=== PATIENT | female | born 1940 | race Caucasian/White ===

== ENCOUNTER → 2017-01-01 | Outpatient (CLI) | payer MEDICARE, BC ==
[2017-01-01 11:14] LABS: EKG EKG PERFORMED
[2017-01-01 11:34] LABS: Appearance,Urine Clear (Clear); Bacteria,Urine Rare /hpf; Bilirubin,Urine Negative (Negative); Glucose,Urine (UA) Negative (Negative); Ketones,Urine Negative (Negative); Leukocyte Esterase,Urine Large (Negative); Mucus,Urine Rare /hpf; Nitrite,Urine Negative (Negative); Particle Count 1478; Protein,Urine Negative (Negative); Specific Gravity,Urine 1.007 (1.001-1.035); Squamous Epithelial Cell,Urine 1 /hpf (0-4); UA Billing (MACRO vs. MICRO) MICRO; Urobilinogen,Urine <2.0 mg/dL (<2.0); WBC,Urine 55 /hpf (0-5)
[2017-01-01 11:49] LABS: INR 1.2 (<1.2); Partial Thromboplastin Time 24.6 sec (22.0-30.0); Prothrombin Time 11.7 sec (9.0-12.0)
[2017-01-01 11:50] LABS: ALT 29 U/L (9-52); AST 25 U/L (14-36); Alkaline Phosphatase 75 U/L (38-126); Anion Gap 10 mmol/L; Blood Urea Nitrogen 23 mg/dL (7-17); Calcium 9.6 mg/dL (8.4-10.2); Carbon Dioxide 24 mmol/L (22-30); Chloride 106 mmol/L (98-107); Glucose 97 mg/dL (74-99); Non-African American GFR(MDRD) >60 (>60 ml/min/1.73 sqM); Potassium 4.7 mmol/L (3.5-5.1); Sodium 140 mmol/L (137-145); Total Bilirubin 0.6 mg/dL (0.2-1.3); Total Protein 6.8 g/dL (6.3-8.2)
[2017-01-01 12:04] LABS: CH 28.4; CHCM 31.9; HCT 46.6 % (34.0-46.0); HDW 2.52; HGB 15.6 gm/dL (11.4-16.0); MCH 30.1 pg (25.0-35.0); MCHC 33.5 g/dL (31.0-37.0); MCV 89.6 fL (80.0-100.0); Mean Platelet Volume 8.7; RDW 14.5 % (11.5-15.5)
[2017-01-01 12:17] LABS: WBC 26.2 k/uL (3.8-10.6)
== END | disposition home or self-care (01) ==
LOC: LABPAT 10:31
PROVIDERS: ATTEND Orthopaedic Surgery
DX: Z01.810 Encounter for preprocedural cardiovascular examination (principal); Z01.812 Encounter for preprocedural laboratory examination
CPT/HCPCS: 80053; 81001; 85027; 85610; 85730; 87070; 93005

== ENCOUNTER 2017-01-21 05:51 | Inpatient (IN) | payer MEDICARE, BC ==
[2017-01-08 13:58] VITALS: BMI 32.3
[~2017-01-21 05:51] MED LIST: DEXAMETHASONE SOD PHOSPHATE 10 MG/ML 1 ML VIAL IV ONE; HYDROmorphone 0.5 MG/0.5 ML SYRINGE IVP PRN; LACTATED RINGERS 1,000 ML IV SCH; MIDAZOLAM 2 MG/2 ML VIAL IV PRN; ONDANSETRON 4 MG/2 ML VIAL IVP ONE; ceFAZolin 2 GM in SODIUM CHLORIDE 0.9% 100 ML IVPB ONE
[2017-01-21 06:26] VITALS: BP 175/76; PULSE 78; RESP 18; TEMP 97.8
[2017-01-21] MEDS ORDERED: LIDOCAINE 1% 20 ML VIAL (10MG/ML) FOR IV START INTRADERMA ONE (06:27)
[2017-01-21 06:28] LABS: CH 29.9; HCT 47.1 % (34.0-46.0); HDW 2.59; MCHC 31.8 g/dL (31.0-37.0); MCV 91.1 fL (80.0-100.0); Mean Platelet Volume 8.5; RBC 5.16 m/uL (3.80-5.40); RDW 15.2 % (11.5-15.5)
[2017-01-21 06:51] LABS: WBC 25.3 k/uL (3.8-10.6)
[2017-01-21 07:25] LABS: CH 28.8; CHCM 31.4; HCT 45.7 % (34.0-46.0); HGB 14.5 gm/dL (11.4-16.0); MCH 29.2 pg (25.0-35.0); MCHC 31.7 g/dL (31.0-37.0); MCV 92.2 fL (80.0-100.0); Mean Platelet Volume 8.8; RBC 4.96 m/uL (3.80-5.40); RDW 14.3 % (11.5-15.5); WBC 22.1 k/uL (3.8-10.6)
--- NOTE | 2017-01-24 11:05 | CONS ---
CONSULTATION Ms. Nicolas was admitted for a left total knee replacement on this date. Previously she had a history of high white count had been noticed and was given to . She of 5.6 and it was repeated on . was 2.5. She had asymptomatic and treated by her physician . Her previous at the time of the previous . She has seen her white blood cells . She was told it was early lymphoma. She was given workup for her in the past years, post and her surgery today and have reevaluation by attending physician. Will reschedule her nitrate until we have some logic as to her and reevaluation by her family physician. MMODL / IJN: [id number] /
== END 2017-01-21 07:51 | disposition home or self-care (01) | DRG 554 ==
LOC: 2ORMAIN 05:51
PROVIDERS: ADMIT Orthopaedic Surgery; ATTEND Orthopaedic Surgery
DX: M17.12 Unilateral primary osteoarthritis, left knee (principal); Z53.09 Procedure and treatment not carried out because of other contraindication
CPT/HCPCS: 85027

== ENCOUNTER → 2017-01-24 | Outpatient (CLI) | payer MEDICARE, BC ==
[2017-01-24 09:23] LABS: Amorphous Sediment,Urine Rare /hpf; Appearance,Urine Cloudy (Clear); Bacteria,Urine Rare /hpf; Bilirubin,Urine Negative (Negative); Glucose,Urine (UA) Negative (Negative); Ketones,Urine Negative (Negative); Leukocyte Esterase,Urine Negative (Negative); Mucus,Urine Occasional /hpf; Nitrite,Urine Negative (Negative); PH, Urine 5.5 (5.0-8.0); Particle Count 3603; Protein,Urine Negative (Negative); RBC,Urine 1 /hpf (0-5); Specific Gravity,Urine 1.015 (1.001-1.035); Squamous Epithelial Cell,Urine 1 /hpf (0-4); UA Billing (MACRO vs. MICRO) MICRO; Urobilinogen,Urine <2.0 mg/dL (<2.0); WBC,Urine 1 /hpf (0-5)
[2017-01-24 09:44] LABS: CH 29.8; CHCM 32.2; HCT 51.1 % (34.0-46.0); HDW 2.59; MCH 29.1 pg (25.0-35.0); MCHC 31.3 g/dL (31.0-37.0); MCV 93.2 fL (80.0-100.0); Mean Platelet Volume 8.9; RBC 5.48 m/uL (3.80-5.40); RDW 15.7 % (11.5-15.5); WBC (Perox) 29.13
[2017-01-24 10:18] LABS: WBC 27.6 k/uL (3.8-10.6)
[2017-01-24 10:23] LABS: Add Differential Manual Differential
[2017-01-24 10:26] LABS: Nucleated Red Blood Cells 0 /100 WBC (0-0); Total Cells Counted 200
== END | disposition home or self-care (01) ==
LOC: LABWHC1 08:46
PROVIDERS: ATTEND Orthopaedic Surgery
DX: N39.0 Urinary tract infection, site not specified (principal); D72.829 Elevated white blood cell count, unspecified
CPT/HCPCS: 36415; 81001; 85025

== ENCOUNTER 2017-01-27 05:45 | Inpatient (IN) | payer MEDICARE, BC ==
[2017-01-23 14:18] VITALS: BMI 32.3
[~2017-01-27 05:45] MED LIST changes: -HYDROmorphone 0.5 MG/0.5 ML SYRINGE IVP PRN; -LACTATED RINGERS 1,000 ML IV SCH
[2017-01-27] MEDS ORDERED: LACTATED RINGERS 1,000 ML IV ONE ×3 (06:13→08:28)
[2017-01-27] MEDS ORDERED: LIDOCAINE 1% 20 ML VIAL (10MG/ML) FOR IV START INTRADERMA ONE (06:31)
[2017-01-27 06:52] LABS: CH 29.8; CHCM 32.6; HCT 49.9 % (34.0-46.0); HDW 2.56; MCH 29.6 pg (25.0-35.0); MCV 92.3 fL (80.0-100.0); Mean Platelet Volume 8.5; RBC 5.41 m/uL (3.80-5.40); RDW 15.7 % (11.5-15.5)
[2017-01-27] MEDS ORDERED: MIDAZOLAM 2 MG/2 ML VIAL ONE (07:07)
[2017-01-27] MEDS ORDERED: SODIUM CHLORIDE 0.9% 1,000 ML IV ONE (07:07)
[2017-01-27] MEDS ORDERED: fentaNYL (PF) 50 MCG/ML 2 ML AMP ONE (07:07)
[2017-01-27] MEDS ORDERED: PROPOFOL 10 MG/ML 20 ML VIAL IV ONE (07:07)
[2017-01-27] MEDS ORDERED: ePHEDrine SULFATE/0.9% NACL/PF 50 MG/5 ML SYRINGE IV ONE (07:07)
[2017-01-27 07:12] LABS: Glucose,Whole Blood 110 mg/dL (75-99)
[2017-01-27 07:23] LABS: WBC 23.1 k/uL (3.8-10.6)
[2017-01-27 07:24] LABS: Add Differential Manual Differential
[2017-01-27 07:26] LABS: Nucleated Red Blood Cells 0 /100 WBC (0-0); Total Cells Counted 100
[2017-01-27 07:34] LABS: Manual Review Performed
[2017-01-27] MEDS ORDERED: ceFAZolin 3,000 MG in SODIUM CHLORIDE 0.9% IRRIGATIO 3,000 ML IRRIGATION ONE (08:09)
[2017-01-27] MEDS ORDERED: NALOXONE 0.4 MG/ML 1 ML VIAL IV PRN (09:35)
[2017-01-27] MEDS ORDERED: BISACODYL 10 MG SUPP RECTAL PRN (09:35)
[2017-01-27] MEDS ORDERED: HYDROcodone/APAP 5-325MG 1 EACH TAB PO PRN (09:35)
[2017-01-27] MEDS ORDERED: ONDANSETRON 4 MG/2 ML VIAL IVP PRN (09:35)
[2017-01-27] MEDS ORDERED: TEMAZEPAM 15 MG CAP PO PRN (09:35)
[2017-01-27] MEDS ORDERED: HYDROmorphone 0.5 MG/0.5 ML SYRINGE IVP PRN ×3 (09:35)
[2017-01-27] MEDS ORDERED: NA PHOS,M-B/NA PHOS,DI-BA 133 ML ENEMA RECTAL PRN (09:35)
[2017-01-27] MEDS: HYDROmorphone 0.5 MG/0.5 ML SYRINGE IVP PRN ×2 (09:43→20:47)
--- NOTE | 2017-01-27 10:20 | XR ---
EXAMINATION TYPE: XR knee limited LT DATE OF EXAM: 01/27/2017 CLINICAL HISTORY: Left knee pain and arthritis status post total knee replacement. TECHNIQUE: Portable AP and crosstable lateral views of the left knee are obtained immediately postop eratively. COMPARISON: None FINDINGS: Metallic hardware from total left knee arthroplasty is seen and appears satisfactory in al ignment and position. There is evidence of recent surgery with diffuse subcutaneous gas soft tissue swelling noted extending anteriorly and most prominent superiorly. IMPRESSION: METALLIC HARDWARE FROM TOTAL LEFT KNEE ARTHROPLASTY IS SATISFACTORY IN ALIGNMENT.
[2017-01-27] MEDS: HYDROcodone/APAP 5-325MG 1 EACH TAB PO PRN ×3 (11:32→21:33)
[2017-01-27] MEDS: ceFAZolin 2 GM in SODIUM CHLORIDE 0.9% 100 ML IVPB SCH ×2 (15:43→23:12)
[2017-01-27] MEDS: LACTATED RINGERS 1,000 ML IV SCH ×3 (16:22→20:53)
[2017-01-27] MEDS ORDERED: WARFARIN 5 MG TAB PO ONE (18:00)
[2017-01-27] MEDS: SENNOSIDES-DOCUSATE SODIUM 1 EACH TAB PO SCH (20:48)
[2017-01-28] MEDS: HYDROmorphone 0.5 MG/0.5 ML SYRINGE IVP PRN (00:42)
[2017-01-28] MEDS: HYDROcodone/APAP 5-325MG 1 EACH TAB PO PRN (03:12)
[2017-01-28 07:17] LABS: INR 1.5 (<1.2); Prothrombin Time 14.7 sec (9.0-12.0)
--- NOTE | 2017-01-28 07:33 | CONS ---
CONSULTATION DATE OF CONSULTATION: 01/27/2017 REASON FOR CONSULTATION: Medical management requested by Dr. Gill. CONSULTATION: This is a pleasant 76-year-old patient of Dr. Reis'madison undergone a left total knee arthroplasty. Patient's chronic stable medical conditions include hypertension, hyperlipidemia, urinary stress incontinence. Some pain in the operative site. No nausea or vomiting. No chest pain. Denies any cardiac history. REVIEW OF SYSTEMS: CONSTITUTIONAL: None. HEENT: None. RESPIRATORY: None. CARDIOVASCULAR: None. GASTROINTESTINAL: None. GENITOURINARY: As above. MUSCULOSKELETAL: Pain in joints. DERMATOLOGICAL: None. HEMATOLOGIC: None. LYMPHATICS: None. PSYCHIATRY: None. NEUROLOGICAL: None. PAST HISTORY: Hypertension, hyperlipidemia, urinary stress incontinence, osteoarthritis. PAST SURGICAL HISTORY: Appendectomy, cholecystectomy, hysterectomy, right total knee arthroplasty, partial hysterectomy. SOCIAL HISTORY: Lives by herself. Smoked a pack a day for 40 years, stopped in 1992. Alcohol occasional. FAMILY HISTORY: Family history of lung cancer. HOME MEDICATION: 1. Fish oil 1 capsule p.o. daily. 2. Multivitamin 1 tablet p.o. daily. 3. Magonate 250 mg p.o. q.h.s. 4. Losartan 50 mg p.o. daily. 5. Cipro 500 mg q.12. 6. Tylenol 5 mg q.4 p.r.n. ALLERGIES: None. PHYSICAL EXAMINATION: On examination vital signs: Temperature 97, pulse 80, respirations 16, blood pressure 174/72, pulse ox 94% on room air. GENERAL APPEARANCE: Well built, BMI 32.3 sitting up, not in distress. EYES: Pupils equal. Conjunctivae normal. HENT: Oral cavity normal. NECK: JVD not raised. Mass not palpable. RESPIRATORY: Effort Lungs are clear. CARDIOVASCULAR: First and second sounds normal. No edema. ABDOMEN: Soft, nontender. Liver and spleen not palpable. LYMPHATIC: No lymph node palpable in the neck or axillae. PSYCHIATRY: Alert and oriented x3. Mood and affect normal. NEUROLOGICAL: Pupils equal. Cranial nerves grossly intact. MUSCULOSKELETAL: Evidence of osteoarthritis especially in the hands and knee. INVESTIGATIONS: White count 23.1, hemoglobin 16, platelets 110. Lymphocytes up at 18.25. Patient's white count was 27.6 on 01/24/17. ASSESSMENT: 1. Left total knee arthroplasty. 2. Primary osteoarthritis. 3. Essential hypertension. 4. Hyperlipidemia. 5. Chronic urinary stress incontinence. 6. Suspect underlying CLL. This can be worked up further as an outpatient. PLAN: Patient's home medications are to be resumed. Patient getting IV fluids. Coumadin for DVT prophylaxis per Dr. Gill. The patient should follow up with Hematology for possible CLL as an outpatient. No intervention to be done at this point. Care was discussed with the patient. Thank you Dr. Gill. MMBARON / AAKASHN: [id number] /
[2017-01-28 08:01] LABS: CH 28.7; CHCM 31.5; HCT 41.6 % (34.0-46.0); HDW 2.47; HGB 13.3 gm/dL (11.4-16.0); MCH 29.3 pg (25.0-35.0); MCV 91.7 fL (80.0-100.0); Mean Platelet Volume 8.5; RBC 4.54 m/uL (3.80-5.40); RDW 14.5 % (11.5-15.5); WBC (Perox) 28.78
[2017-01-28 08:15] LABS: WBC 27.5 k/uL (3.8-10.6)
[2017-01-28] MEDS ORDERED: HYDROcodone/APAP 7.5-325MG 1 EACH TAB PO PRN (08:37)
[2017-01-28] MEDS: HYDROcodone/APAP 7.5-325MG 1 EACH TAB PO PRN ×3 (09:21→21:16)
--- NOTE | 2017-01-28 09:26 | P.PN ---
Subjective Principal diagnosis: Status post left total knee arthroplasty This is a 76 year-old female post left total knee arthroplasty. This is post- op day 1. The patient was evaluated at the bedside today. The patient denies nausea, vomiting, abdominal pain, shortness of breath, and chest pain this morning. She states her pain is controlled at this time. The patient has not been up with physical therapy but has ambulated to the bathroom. Objective - Vital Signs Vital signs: Vital Signs Temp 98.5 F 01/28/17 06:39 Pulse 80 01/28/17 06:39 Resp 16 01/28/17 06:39 BP 154/72 01/28/17 06:39 Pulse Ox 96 01/28/17 06:39 Intake & Output 01/27/17 01/28/17 01/28/17 18:59 06:59 18:59 Intake Total 2108 3200 Output Total 580 Balance 1528 3200 Weight 87.997 kg Intake: IV 1751 1600 Lactated Ringers 1,000 ml 350 1600 @ 100 mls/hr IV .Q10H [facility] Rx#:[id number] Oral 357 1600 Output: Urine 480 Estimated Blood Loss 100 Other: Voiding Method Indwelling Catheter Indwelling Catheter - Exam The patient does not appear in acute distress. Alert and orientated x3. Dressing is clean dry and intact. Incision appears fine with no erythema or active drainage. Ecchymosis is present to the incision site. There are 2 blisters to the medial aspect of the knee, not near the incision. Calf is soft and nontender. Good foot and ankle motion without difficulty. Sensation and circulatory status is intact. - Labs CBC & Chem 7: 01/28/17 06:37 Labs: Abnormal Lab Results - Last 24 Hours (Table) 01/28/17 01/28/17 Range/Units 06:37 06:37 WBC 27.5 H* (3.8-10.6) k/uL Plt Count 103 L (150-450) k/uL PT 14.7 H (9.0-12.0) sec INR 1.5 H (<1.2) Laboratory Tests 01/28/17 06:37 PT 14.7 H INR 1.5 H Assessment and Plan (1) Primary osteoarthritis of left knee Status: Acute (2) Status post left knee replacement Status: Acute Plan: 1. Continue pain control 2. Anticoagulation with Coumadin per protocol 3. Continue physical therapy, CPM and ambulation 4. Dr. Wiseman consulted due to high white blood cell count, possible CLL 5. Anticipate discharge to skilled rehab on
[2017-01-28 10:21] LABS: Add Differential Manual Differential
[2017-01-28 10:28] LABS: Nucleated Red Blood Cells 0 /100 WBC (0-0); Total Cells Counted 200
[2017-01-28] MEDS: LACTATED RINGERS 1,000 ML IV SCH ×2 (10:53→10:54)
[2017-01-28] MEDS: hydrOXYzine PAMOATE 25 MG CAP PO PRN ×2 (15:08→21:17)
--- NOTE | 2017-01-28 17:18 | P.PN ---
Progress Note - Text DATE OF SERVICE: 01/28/2017 PRESENTING COMPLAINT: Status post left total knee arthroplasty HISTORY OF PRESENT ILLNESS: 76-year-old female who is status post left total knee arthroplasty. INTERVAL HISTORY: 01/28/2017: Patient lying in bed complains of operative site pain. Just completed working with physical therapy. Tolerating her diet agreeable to work with physical therapy last BM prior to admission REVIEW OF SYSTEMS: Done for constitutional ,cardiovascular, GI, pulmonary with relevant findings as above. CURRENT MEDICATIONS [place], Dulcolax, Vistaril, Cozaar, milk of magnesia, Coumadin, Senokot-S, Restoril. PHYSICAL EXAM VITAL SIGNS: Temperature 98.5, pulse 80, blood pressure 154/72, respiratory rate 16, oxygen saturation 96%. GENERAL APPEARANCE: Lying in bed, not in distress. EYES: Pupils equal. Conjunctiva normal. NECK: JVD not raised. Mass not palpable. RESPIRATORY: Respiratory effort normal. Lungs diminished to auscultation. CARDIOVASCULAR: First and second sounds normal. No edema. ABDOMEN: Soft. Liver and spleen not palpable. No tenderness. No mass palpable. PSYCHIATRY: Alert and oriented x3. Mood and affect normal. MUSCULOSKELETAL: Evidence of osteoarthritis especially in the knees and hands INVESTIGATIONS: White blood cell count 27.5, INR 1.5 ASSESSMENT: -Left total knee arthroplasty, -Primary osteoarthritis of multiple joints bilateral -Essential hypertension. -Hyperlipidemia. -Chronic urinary stress incontinence. -Suspect underlying CLL this could be worked up as an outpatient. PLAN: Continue Coumadin for DVT prophylaxis per orthopedics, will continue to work with physical therapy, patient follow-up with oncology hematology for CLL after discharge. Plan of care discussed with patient at the bedside she is in agreement. We will follow closely. SWITCHGEAR REPAIRER statement: Patient was seen and examined by nurse practitioner Aimee Naidu and all elements of the case discussed with attending Dr. Penny
[2017-01-28] MEDS ORDERED: WARFARIN 2.5 MG TAB PO ONE (18:00)
--- NOTE | 2017-01-28 18:42 | PN ---
PROGRESS NOTE DATE OF SERVICE: 01/28/2017 ATTENDING NOTE: This patient seen examined by me. I discussed this with my nurse practitioner, Ms. Naidu. Patient having some pain in her left knee surgery otherwise doing well. Tolerating a diet. No nausea, vomiting, sitting up, comfortable. Did work with therapy. EXAMINATION: Afebrile, blood pressure 115/72, pulse ox 94% on room air. LUNGS: Clear. CARDIOVASCULAR: 1st and 2nd sounds normal. White count 27.5. ASSESSMENT: 1. Left total knee arthroplasty. 2. CLL. PLAN: I talked to Dr. Wiseman from Hematology. Patient's CLL is being followed by her family doctor Dr. Massey. Keep a close eye. If things were to change, in that case they can follow up with Dr. Wiseman. For this patient at this point nothing further needs to be done. The patient's blood pressure to be re-checked now that pain is better controlled. MMODL / IJN: [id number] /
[2017-01-28] MEDS: MAGNESIUM HYDROXIDE 2,400 MG/10 ML CUP PO PRN (19:25)
[2017-01-28] MEDS: LOSARTAN 50 MG TAB PO SCH (19:25)
[2017-01-28] MEDS: SENNOSIDES-DOCUSATE SODIUM 1 EACH TAB PO SCH (21:17)
[2017-01-29] MEDS: hydrOXYzine PAMOATE 25 MG CAP PO PRN ×4 (02:57→22:45)
[2017-01-29] MEDS: HYDROcodone/APAP 7.5-325MG 1 EACH TAB PO PRN ×4 (02:58→22:46)
[2017-01-29 07:14] LABS: INR 1.6 (<1.2); Prothrombin Time 15.8 sec (9.0-12.0)
[2017-01-29] MEDS: LOSARTAN 50 MG TAB PO SCH (07:53)
[2017-01-29] MEDS: MAGNESIUM HYDROXIDE 2,400 MG/10 ML CUP PO PRN (08:00)
--- NOTE | 2017-01-29 08:53 | P.PN ---
Subjective Principal diagnosis: Status post left total knee arthroplasty This is a 76 year-old female post left total knee arthroplasty. This is post- op day 2. The patient was evaluated while sitting in the bathroom today. The patient denies nausea, vomiting, abdominal pain, shortness of breath, and chest pain this morning. She states her pain is controlled at this time. The patient has been up with physical therapy and moving slowly. Objective - Vital Signs Vital signs: Vital Signs Temp 97.8 F 01/29/17 07:00 Pulse 100 01/29/17 07:00 Resp 16 01/29/17 07:00 BP 149/65 01/29/17 07:00 Pulse Ox 96 01/29/17 07:00 Intake & Output 01/28/17 01/29/17 01/29/17 18:59 06:59 18:59 Intake Total 1480 237 Balance 1480 237 Weight 87.997 kg Intake: IV 200 Lactated Ringers 1,000 ml 200 @ 100 mls/hr IV .Q10H [facility] Rx#:[id number] Oral 1280 237 Other: Voiding Method Indwelling Catheter # Voids 5 2 1 - Exam The patient does not appear in acute distress. Alert and orientated x3. Dressing is clean dry and intact. Incision appears fine with no erythema or active drainage. Ecchymosis is present to the incision site. There are 2 blisters to the medial aspect of the knee, not near the incision. Calf is soft and nontender. Good foot and ankle motion without difficulty. Sensation and circulatory status is intact. - Labs CBC & Chem 7: 01/28/17 06:37 Labs: Abnormal Lab Results - Last 24 Hours (Table) 01/28/17 01/29/17 Range/Units 06:37 06:34 Plt Count 103 L (150-450) k/uL Lymphocytes # (Manual) 20.90 H (1.0-4.8) k/uL PT 15.8 H (9.0-12.0) sec INR 1.6 H (<1.2) Laboratory Tests 01/29/17 06:34 PT 15.8 H INR 1.6 H Assessment and Plan (1) Primary osteoarthritis of left knee Status: Acute (2) Status post left knee replacement Status: Acute Plan: 1. Continue pain control 2. Anticoagulation with Coumadin per protocol 3. Continue physical therapy, CPM and ambulation 4. Anticipate discharge to skilled rehab on tomorrow
[2017-01-29] MEDS ORDERED: ARTIFICIAL TEARS-HYPROMELLOSE DROPS 15 ML BTL BOTH EYES PRN (10:55)
--- NOTE | 2017-01-29 17:34 | P.PN ---
Progress Note - Text Progress Note Date: 01/29/17 DATE OF SERVICE: 01/29/2017 PRESENTING COMPLAINT: Status post left total knee arthroplasty HISTORY OF PRESENT ILLNESS: 76-year-old female who is status post left total knee arthroplasty. INTERVAL HISTORY: 01/29/2017: Patient sitting up in a chair complains of left knee pain with not too bad. Agreeable to work with physical therapy, tolerating her diet eating about 100% of her meal, last BM prior to admission. Discharge planning for a rehab center. 01/28/2017: Patient lying in bed complains of operative site pain. Just completed working with physical therapy. Tolerating her diet agreeable to work with physical therapy last BM prior to admission REVIEW OF SYSTEMS: Done for constitutional ,cardiovascular, GI, pulmonary with relevant findings as above. CURRENT MEDICATIONS [place], Dulcolax, Vistaril, Cozaar, milk of magnesia, Coumadin, Senokot-S, Restoril. PHYSICAL EXAM VITAL SIGNS: Temperature 97.8, pulse 100, respirations 16, blood pressure 149/65, oxygen saturation 96% on room air. GENERAL APPEARANCE: Lying in bed, not in distress. EYES: Pupils equal. Conjunctiva normal. NECK: JVD not raised. Mass not palpable. RESPIRATORY: Respiratory effort normal. Lungs diminished to auscultation. CARDIOVASCULAR: First and second sounds normal. No edema. ABDOMEN: Soft. Liver and spleen not palpable. No tenderness. No mass palpable. PSYCHIATRY: Alert and oriented x3. Mood and affect normal. MUSCULOSKELETAL: Evidence of osteoarthritis especially in the knees and hands INVESTIGATIONS INR 1.6 ASSESSMENT: -Left total knee arthroplasty, -Primary osteoarthritis of multiple joints bilateral -Essential hypertension. -Hyperlipidemia. -Chronic urinary stress incontinence. -Suspect underlying CLL this could be worked up as an outpatient. PLAN: Continue Coumadin for DVT prophylaxis per orthopedics, will continue to work with physical therapy, patient follow-up with oncology hematology for CLL after discharge. Plan of care discussed with patient at the bedside she is in agreement. We will follow closely. TERRAZZO INSTALLER statement: Patient was seen and examined by nurse practitioner Aimee Naidu and all elements of the case discussed with attending Dr. Penny
[2017-01-29] MEDS ORDERED: WARFARIN 5 MG TAB PO ONE (18:00)
--- NOTE | 2017-01-29 18:07 | PN ---
PROGRESS NOTE DATE OF SERVICE: 01/29/17. The patient was seen and examined by me. I discussed with my nurse practitioner, Ms. Naidu. The patient doing much better today. Pain is better controlled. Up and about. Nausea, vomiting. Tolerating a diet. Did work with physical therapy. PHYSICAL EXAMINATION: Afebrile. Blood pressure 149/65, lungs are clear. CARDIOVASCULAR: First and second sounds normal. Left knee there is some blisters that are present around the joint. INVESTIGATIONS: White count 27.5, hemoglobin 13.3. ASSESSMENT: 1. Left total knee arthroplasty. 2. Chronic lymphocytic leukemia. 3. Blisters present on left knee site. PLAN: We will await further input from Dr. Gill. The patient's fluids have been taken off. Nothing further per orthopedics. We will keep a close eye. Repeat a CBC again in the morning. The patient is afebrile. Otherwise feels actually much better with decreased pain at the surgical site. MMODL / IJN: [id number] /
[2017-01-29] MEDS: SENNOSIDES-DOCUSATE SODIUM 1 EACH TAB PO SCH (21:08)
[2017-01-30] MEDS: hydrOXYzine PAMOATE 25 MG CAP PO PRN ×2 (06:23→13:31)
[2017-01-30 07:00] LABS: Aty Lym Flag Marked; CH 28.8; HCT 34.2 % (34.0-46.0); HDW 2.51; HGB 11.3 gm/dL (11.4-16.0); MCH 29.8 pg (25.0-35.0); MCHC 32.9 g/dL (31.0-37.0); MCV 90.6 fL (80.0-100.0); Mean Platelet Volume 7.6; RBC 3.78 m/uL (3.80-5.40); RDW 14.6 % (11.5-15.5); WBC (Perox) 37.58
[2017-01-30 07:04] LABS: WBC 38.3 k/uL (3.8-10.6)
[2017-01-30 07:09] LABS: Add Differential Manual Differential
[2017-01-30 07:20] LABS: INR 1.4 (<1.2)
[2017-01-30 07:28] VITALS: RESP 16
[2017-01-30 07:42] LABS: Nucleated Red Blood Cells 0 /100 WBC (0-0); Total Cells Counted 200
--- NOTE | 2017-01-30 08:34 | P.DS ---
Providers Date of admission: 01/27/17 05:45 Expected date of discharge: 01/30/17 Attending physician: Scotty Gill Consults: 01/27/17 09:35 Consult Physician Routine Consulting Provider: Gilbert Penny Consult Reason/Comments: medical management Do you want consulting provider notified?: Yes 01/27/17 09:38 Consult Physician Routine Consulting Provider: David Wiseman Consult Reason/Comments: Chronic leukocytosis Do you want consulting provider notified?: Yes Primary care physician: Patrick Massey - Discharge Diagnosis(es) (1) Primary osteoarthritis of left knee Current Visit: Yes Status: Acute (2) Status post left knee replacement Current Visit: Yes Status: Acute Hospital Course: This is a pleasant 76-year-old female last seen in our office with complaints of left knee pain. Patient has known history of degenerative arthritis of the left knee and presented to discuss options. After discussion and consideration , the patient elected to proceed with a left total knee arthroplasty. Patient was seen preoperatively, and medically cleared for surgery by Dr. Massey. Patient was admitted to [facility] underwent left total knee arthroplasty on 01/27/[address] Gill. The procedure was performed without complications or sequelae. The patient is seen and evaluated at bedside today. Pain is well-controlled. Patient has no new complaints today and denies any fevers, chills, nausea, vomiting, or shortness of breath. Vital signs are stable. Dressing is clean dry and intact. Incision looks fine with no erythema or active drainage. There are two blisters on the medial side and the lateral side of the knee, not near the incision. Calf is soft and nontender. Patient has full foot and ankle motion without difficulty. Patient's left lower extremity is neurovascularly intact. She was seen post-operatively by Dr. Wiseman for CLL. The patient is orthopedically stable for discharge today. See medication reconciliation for accurate list of discharge medications. Pertinent Studies: Laboratory Tests 01/30/17 01/30/17 06:43 06:43 WBC 38.3 H* RBC 3.78 L Hgb 11.3 L Hct 34.2 PT 14.0 H INR 1.4 H Patient Condition at Discharge: Stable Plan - Discharge Summary New Discharge Prescriptions: New Aspirin 325 mg PO DAILY #30 tab HYDROcodone/APAP 7.5-325MG [[place] 7.5-325] 1 - 2 tab PO Q4-6H PRN #90 tab PRN Reason: Pain Sennosides-Docusate Sodium [Senokot-S] 2 tab PO DAILY #30 tablet Warfarin [Coumadin] 2.5 mg PO DIRECTED #30 tab No Action Ibuprofen [Motrin] 600 mg PO TID PRN PRN Reason: Pain [place]-3S/Dha/Epa/Fish Oil [[place]-3 Fish Oil 1,000 mg Sfgl] 1 cap PO DAILY Magnesium Gluconate [Magonate] 250 mg PO HS Losartan Potassium 50 mg PO QAM Ciprofloxacin HCl [Cipro] 500 mg PO Q12HR Multivitamin/Iron/Folic Acid [[place] Women Tablet] 1 tab PO DAILY Acetaminophen [Tylenol] 500 mg PO Q4-6H PRN PRN Reason: Pain Discharge Medication List Ibuprofen [Motrin] 600 mg PO TID PRN 12/08/14 [History] Magnesium Gluconate [Magonate] 250 mg PO HS 12/08/14 [History] [place]-3S/Dha/Epa/Fish Oil [[place]-3 Fish Oil 1,000 mg Sfgl] 1 cap PO DAILY [History] Ciprofloxacin HCl [Cipro] 500 mg PO Q12HR 01/08/17 [History] Losartan Potassium 50 mg PO QAM 01/08/17 [History] Multivitamin/Iron/Folic Acid [Centrum Women Tablet] 1 tab PO DAILY 01/08/17 [ History] Acetaminophen [Tylenol] 500 mg PO Q4-6H PRN 01/22/17 [History] Aspirin 325 mg PO DAILY #30 tab 01/29/17 [Rx] HYDROcodone/APAP 7.5-325MG [[place] 7.5-325] 1 - 2 tab PO Q4-6H PRN #90 tab [Rx] Sennosides-Docusate Sodium [Senokot-S] 2 tab PO DAILY #30 tablet 01/29/17 [Rx] Warfarin [Coumadin] 2.5 mg PO DIRECTED #30 tab 01/29/17 [Rx] Follow up Appointment(s)/Referral(s): David Wiseman MD [STAFF PHYSICIAN] - 1 Week (possible CLL) Scotty Gill DO [Doctor of Osteopathic Medicine] - 2 Weeks Ambulatory/Diagnostic Orders: Continuous Passive Motion (CPM) Machine [DME.AMB1] Time Frame: 3 Weeks, Location : Determined By Patient Activity/Diet/Wound Care/Special Instructions: Weightbearing as tolerated with a walker Coumadin 2.5 mg 1 by mouth every other day for 7 days then take Aspirin 325mg daily for 1 month CPM 5-6 hours daily May shower in 3 days if no drainage from incision Keep incision clean and dry Call [facility] [phone] with questions or concerns Discharge Disposition: TRANSFER TO SNF/ECF
[2017-01-30] MEDS: LOSARTAN 50 MG TAB PO SCH (09:25)
--- NOTE | 2017-01-30 13:11 | OP ---
OPERATIVE REPORT DATE OF SERVICE: 01/27/2017. SURGEON: Scotty Gill DO BOX TRUCK OWNER OPERATOR: Kiersten Carey NP PREOPERATIVE DIAGNOSIS: Degenerative joint disease of the left knee. POSTOPERATIVE DIAGNOSIS: Degenerative joint disease of the left knee. PROCEDURE PERFORMED: Left total knee replacement and arthroplasty utilizing Meng Persona component prosthesis. PROCEDURE DESCRIPTION: Patient was taken to the operative suite, placed in supine position. General inhalation anesthesia performed by Anesthesiology. A Betadine prep was carried out over the femur from mid thigh to mid calf. Sterile drapes were applied in the usual manner. The pneumatic tourniquet was inflated to 350 mmHg. A medial parapatellar incision was developed. Medial retinaculum was incised throughout the synovium. The patella was everted and dislocated laterally and knee brought into flexion position and held in a leg larson. The intramedullary cutting guide and jig was utilized for appropriate cuts in preparation for a size 7 femoral component. The component size 7 was impacted in position and the component was well maintained and aligned. A tibial cutting guide was aligned and the appropriate wafer cut was performed. The medial and lateral menisci was excised. A size 4 trabecular metal plate was selected and 10 mm spacer was utilized in preparing for appropriate peg hole positions. the area was irrigated copiously. The tibial tray was marked for position , held and appropriate peg holes were drilled for tibial tray. The patella was everted, a shelving planer was utilized in preparing for size 12mm patella component. Trial components were removed from the knee. Pulsavac antibiotic solution was administered in preparation for final components. Plate was placed in the predrilled holes and a size left tibial component was impacted into position. The patellar component was then placed in position. A 12 mm polyethylene spacer was selected and locked into place and aligned for position. Knee was irrigated with Pulsavac antibiotic solution. The superficial bleeding was controlled with electrocautery. Medial retinaculum was approximated with #3 Vicryl suture in a horizontal mattress fashion. A #2 Quill was utilized in reenforcing the retinaculum in a interrupted fashion. A 2-0 Vicryl suture was utilized for the subcuticular closure. Dermabond was utilized to seal the wound. Betadine, Adaptic and sterile dressing was applied. The pneumatic tourniquet was deflated. Patient was transferred in satisfactory postop condition. GROSS PATHOLOGY: There was evidence of degenerative joint disease of the left knee. MMODL / IJN: [id number] / MTDD
--- NOTE | 2017-01-30 13:14 | P.CONS ---
History of Present Illness - Reason for Consult Consult date: 01/30/17 Rule out ALLERGIC reaction - History of Present Illness This is a 76-year-old female patient who was admitted to the hospital on January 27 and underwent elective left knee total arthroplasty. Patient has had no postop complications and is progressing well with physical therapy. She is planned for discharge to [facility] today. We have been asked to see the patient regarding blisters around the knee area. She is noted to have a number of blisters and some of these have opened and drained. No signs of infection. She does have edema around the surgical area. Patient denies having any fever or chills. Her pain is well controlled at this time on oral medication. Patient has been seen by Dr. Wiseman for her leukocytosis. Noted the patient has been running between 11 and 19 since 2014 and presented with a white count of 23.1 which is now 38.3. Patient states that her primary care physician, Dr. Massey, follows this on a regular basis. She denies having any night sweats, weight loss, shortness of breath, cough, sputum production. She denies any nausea, vomiting diarrhea. She denies any dysuria. Review of Systems All systems: negative Constitutional: Denies anorexia, Denies chills, Denies fatigue, Denies fever, Denies lethargy, Denies malaise, Denies night sweats, Denies poor appetite, Denies sweats, Denies weight loss Eyes: denies blurred vision, denies pain Ears, nose, mouth and throat: Denies dental pain, Denies headache, Denies mouth pain, Denies sore throat Cardiovascular: Denies chest pain, Denies decreased exercise tolerance, Denies dyspnea on exertion, Denies edema, Denies leg edema, Denies lightheadedness, Denies shortness of breath, Denies syncope Respiratory: Denies cough, Denies cough with sputum, Denies dyspnea, Denies excessive sputum, Denies hemoptysis, Denies home oxygen Gastrointestinal: Denies abdominal pain, Denies diarrhea, Denies nausea, Denies vomiting Genitourinary: Denies dysuria, Denies hematuria, Denies urgency, Denies urinary frequency Musculoskeletal: Denies myalgias Integumentary: Reports wounds, Denies pruritus, Denies rash Neurological: Denies numbness, Denies weakness Psychiatric: Denies anxiety, Denies depression Endocrine: Denies fatigue, Denies weight change Past Medical History Past Medical History: Hyperlipidemia, Hypertension, Osteoarthritis (OA) Additional Past Medical History / Comment(s): tx UTI,varicose veins, steroid injection 12-10-16,stress incontinence History of Any Multi-Drug Resistant Organisms: None Reported Past Surgical History: Appendectomy, Cholecystectomy, Hysterectomy, Joint Replacement Additional Past Surgical History / Comment(s): Total R knee arthroplasty, partial hyst Past Anesthesia/Blood Transfusion Reactions: Postoperative Nausea & Vomiting ( PONV) Additional Past Anesthesia/Blood Transfusion Reaction / Comm: no hx blood transfusion Past Psychological History: No Psychological Hx Reported Additional Psychological History / Comment(s): Pt resides alone. She uses no assistive device or home care prior to this surgery. She plans to go to [facility] for rehab after surgery. She drives. Smoking Status: Former smoker Past Alcohol Use History: Occasional Additional Past Alcohol Use History / Comment(s): Pt started smoking in 1953 and quit in 1992,<1 ppd Past Drug Use History: None Reported - Past Family History Brother(s) Family Medical History: Cancer Additional Family Medical History / Comment(s): lung Father Family Medical History: Dementia Additional Family Medical History / Comment(s): at age 91 Mother Family Medical History: Dementia Additional Family Medical History / Comment(s): at age 91 Medications and Allergies Home Medications Medication Instructions Recorded Confirmed Type Ibuprofen [Motrin] 600 mg PO TID PRN 12/08/14 01/27/17 History Magnesium Gluconate [Magonate] 250 mg PO HS 12/08/14 01/27/17 History Bangs-3S/Dha/Epa/Fish Oil [Bangs-3 1 cap PO DAILY 12/08/14 01/27/17 History Fish Oil 1,000 mg Sfgl] Ciprofloxacin HCl [Cipro] 500 mg PO Q12HR 01/08/17 01/27/17 History Losartan Potassium 50 mg PO QAM 01/08/17 01/27/17 History Multivitamin/Iron/Folic Acid 1 tab PO DAILY 01/08/17 01/27/17 History [Centrum Women Tablet] Acetaminophen [Tylenol] 500 mg PO Q4-6H PRN 01/22/17 01/27/17 History Aspirin 325 mg PO DAILY #30 tab 01/29/17 Rx HYDROcodone/APAP 7.5-325MG [[place] 1 - 2 tab PO Q4-6H PRN #90 tab 01/29/17 Rx 7.5-325] Sennosides-Docusate Sodium 2 tab PO DAILY #30 tablet 01/29/17 Rx [Senokot-S] Warfarin [Coumadin] 2.5 mg PO DIRECTED #30 tab 01/29/17 Rx Allergies Allergy/AdvReac Type Severity Reaction Status Date / Time No Known Allergies Allergy Verified 01/27/17 10:00 Physical Exam Vitals: Vital Signs Temp Pulse Pulse Resp BP Pulse Ox 01/30/17 07:00 98.7 F 80 16 124/54 94 L 01/30/17 02:55 98.1 F 89 17 148/85 94 L 01/29/17 21:13 98 F 89 16 132/62 96 01/29/17 20:00 16 01/29/17 16:00 100 89 16 01/29/17 14:56 98.2 F 89 16 131/68 95 Intake and Output 01/29/17 01/30/17 01/30/17 22:59 06:59 14:59 Intake Total 730 900 Output Total 600 500 Balance 130 400 Intake: Oral 730 900 Output: Urine 600 500 Other: Voiding Method Toilet # Voids 2 2 1 Weight 87.997 kg Gen: This is a 76-year-old female. She is found sitting up in the chair at the bedside and appears to be in no acute distress. Patient is eating a sandwich and is noted to have noted difficulty swallowing or coughing. HEENT: Head is atraumatic, normocephalic. Pupils equal, round. Sclerae is anicteric. NECK: Supple. No JVD. No lymphadenopathy. No thyromegaly. LUNGS: Clear to auscultation. No wheezes or rhonchi. No intercostal retractions. HEART: Regular rate and rhythm. No murmur. ABDOMEN: Soft. Bowel sounds are present. No masses. No tenderness. EXTREMITIES: No pedal edema. Left knee has a dressing in place. There is noted to have clear slightly yellow fluid filled bulla. Noted that some have opened and drained and are healing without redness, drainage. No foul odor. NEUROLOGICAL: Patient is awake, alert and oriented x3. Cranial nerves 2 through 12 are grossly intact. Results CBC & Chem 7: 01/30/17 06:43 Labs: Abnormal Lab Results - Last 24 Hours (Table) 01/30/17 01/30/17 Range/Units 06:43 06:43 WBC 38.3 H* (3.8-10.6) k/uL RBC 3.78 L (3.80-5.40) m/uL Hgb 11.3 L (11.4-16.0) gm/dL Plt Count 100 L (150-450) k/uL Lymphocytes # (Manual) 31.41 H (1.0-4.8) k/uL PT 14.0 H (9.0-12.0) sec INR 1.4 H (<1.2) Assessment and Plan Plan: this is a 76-year-old female who presented to the hospital for an elective left total knee arthroplasty done on January 27. She has had no postop complications. She is noted to have large bulla around the surgical area which have started to open, drain and heal. No signs of infection at this time. There is concern for an ALLERGIC reaction. The above dictated assessment and findings were discussed with Dr. Gonzalez. The impression and plan of care have been directed as dictated. Estella Ohara nurse practitioner acting as scribe for Dr. Gonzalez.
[2017-01-30 14:20] VITALS: BP 132/76; PULSE 75; TEMP 97.8
--- NOTE | 2017-01-30 16:23 | PN ---
PROGRESS NOTE DATE OF SERVICE: 01/30/2017 ATTENDING NOTE: This patient seen and examined by me. I discussed with my nurse practitioner, Ms. Naidu. Patient is status post left knee surgery. Some blisters noted around that. Otherwise patient is doing fine. EXAMINATION: Blisters on the left knee surgical site. Lungs are clear. Cardiovascular: 1st and 2nd sounds normal. I discussed with Kiersten Carey from Dr. Gill' team. To get ID opinion, Dr. Gonzalez was consulted, who feels this could be localized allergic reaction with blisters. Resolved with some Silvadene cream. I told the nurse to take some pictures. Will be followed up as an outpatient. 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 Will be followed up as an outpatient. Patient will be getting discharged to the [facility] MMODL / IJN: [id number] /
--- NOTE | 2017-01-30 16:26 | P.PN ---
Progress Note - Text Progress Note Date: 01/30/17 DATE OF SERVICE: 01/29/2017 PRESENTING COMPLAINT: Status post left total knee arthroplasty HISTORY OF PRESENT ILLNESS: 76-year-old female who is status post left total knee arthroplasty. INTERVAL HISTORY: 01/30/2017: Patient sitting up in a recliner, the pain is well-controlled. Agreeable to work with physical therapy. Tolerating her diet eating nearly 100% of her meals , passing a lot of gas but no BM. Discharging to a rehab center today. White blood cell count very elevated today 38.3 patient has a history of lymphoproliferative disorder.infectious disease consulted 01/29/2017: Patient sitting up in a chair complains of left knee pain with not too bad. Agreeable to work with physical therapy, tolerating her diet eating about 100% of her meal, last BM prior to admission. Discharge planning for a rehab center. 01/28/2017: Patient lying in bed complains of operative site pain. Just completed working with physical therapy. Tolerating her diet agreeable to work with physical therapy last BM prior to admission REVIEW OF SYSTEMS: Done for constitutional ,cardiovascular, GI, pulmonary with relevant findings as above. CURRENT MEDICATIONS [place], Dulcolax, Vistaril, Cozaar, milk of magnesia, Coumadin, Senokot-S, Restoril. PHYSICAL EXAM VITAL SIGNS: temperature 98.7, pulse 80, respiratory rate 16, blood pressure 124/54, oxygen saturation 94% on room air GENERAL APPEARANCE: Lying in bed, not in distress. EYES: Pupils equal. Conjunctiva normal. NECK: JVD not raised. Mass not palpable. RESPIRATORY: Respiratory effort normal. Lungs diminished to auscultation. CARDIOVASCULAR: First and second sounds normal. No edema. ABDOMEN: Soft. Liver and spleen not palpable. No tenderness. No mass palpable. PSYCHIATRY: Alert and oriented x3. Mood and affect normal. MUSCULOSKELETAL: Evidence of osteoarthritis especially in the knees and hands INTEGUMENT: Medial and lateral aspects of the left knee have very large fluid- filled blisters, fluid is fluctuant, nontender. INVESTIGATIONS White blood cell count 38.3 INR 1.4 ASSESSMENT: -Left total knee arthroplasty, -left medial and lateral blisters, infective versus ALLERGIC reaction. -Primary osteoarthritis of multiple joints bilateral -Essential hypertension. -Hyperlipidemia. -Chronic urinary stress incontinence. -lymphoproliferative disorder, low grade B cell PLAN: Continue Coumadin for DVT prophylaxis per orthopedics, will continue to work with physical therapy,medial and lateral blisters do not appear to be infected rosary result of infection. patient follow-up with oncology hematology for lymphoproliferative disorder after discharge. Plan of care discussed with patient at the bedside she is in agreement. patient is being discharged to rehab facility today. PLAQUE [employer]ER statement: Patient was seen and examined by nurse practitioner Aimee Naidu and all elements of the case discussed with attending Dr. Penny
[2017-01-30] MEDS ORDERED: WARFARIN 7.5 MG TAB PO ONE (18:00)
--- NOTE | 2017-01-30 20:13 | P.CON ---
Consult Note - . Consult date: 01/30/17 Assessment/Plan:: This is a 76-year-old female patient who was admitted to the hospital on January 27 and underwent elective left knee total arthroplasty. Patient has had no postop complications and is progressing well with physical therapy. She is planned for discharge to [facility] today. We have been asked to see the patient regarding blisters around the knee area. She is noted to have a number of blisters and some of these have opened and drained. No signs of infection. She does have edema around the surgical area. Patient denies having any fever or chills. Her pain is well controlled at this time on oral medication. Patient has been seen by Dr. Wiseman for her leukocytosis. Noted the patient has been running between 11 and 19 since 2014 and presented with a white count of 23.1 which is now 38.3. Patient states that her primary care physician, Dr. Massey, follows this on a regular basis. She denies having any night sweats, weight loss, shortness of breath, cough, sputum production. She denies any nausea, vomiting diarrhea. She denies any dysuria. Please see the consult note is dictated by nurse practitioner Mrs. Estella Ohara. This pleasant 76-year-old woman as noted is status post the left total knee arthroplasty. She was doing well until she developed some severe blisters that are surrounding the arthroplasty site. As noted the outline the lateral aspect of the knee. An area where dressings and adhesive would've been applied. This appears to be a contact dermatitis with blistering. Consequently topical Silvadene will be applied. Nonstick wraps reapplied also this can be done at extended care facility. This should be changed at least on a daily basis for now. The site does not appear to be infected. would avoid antibiotic therapy at this time. She is ready for transfer to the extended care facility. A follow-up in the office if she has any acute needs. I agree with evaluation, assessment and plan as dictated by nurse practitioner Mrs. Estella Ohara.
== END 2017-01-30 15:01 | DRG 470 ==
LOC: 2ORMAIN 05:45 → 3SUR 09:49
PROVIDERS: ADMIT Orthopaedic Surgery; ATTEND Orthopaedic Surgery
PROC: 0SRD0JA Replacement of Left Knee Joint with Synthetic Substitute, Uncemented, Open Approach (ICD-10-PCS; principal; 2017-01-27 07:00)
DX: M17.12 Unilateral primary osteoarthritis, left knee (principal); C91.40 Hairy cell leukemia not having achieved remission; C91.10 Chronic lymphocytic leukemia of B-cell type not having achieved remission; E78.5 Hyperlipidemia, unspecified; I10 Essential (primary) hypertension; N39.3 Stress incontinence (female) (male); S80.222A Blister (nonthermal), left knee, initial encounter; Z79.82 Long term (current) use of aspirin; Z79.899 Other long term (current) drug therapy; Z80.1 Family history of malignant neoplasm of trachea, bronchus and lung; Z87.891 Personal history of nicotine dependence; T78.40XA Allergy, unspecified, initial encounter
CPT/HCPCS: 36415; 81001; 85025; 85610; 88300

== ENCOUNTER → 2023-01-06 | Outpatient (CLI) | payer MEDICARE, BC ==
--- NOTE | 2023-01-06 11:36 | XR ---
EXAMINATION TYPE: XR knee complete RT DATE OF EXAM: 01/06/2023 CLINICAL HISTORY: pain TECHNIQUE: Three views of the right knee are obtained. COMPARISON: None. FINDINGS: There is no acute fracture/dislocation. Total knee arthroplasty is noted be in place. Smal l joint effusion noted. The overlying soft tissue appears unremarkable. IMPRESSION: There is no acute fracture or dislocation.ICD 10 NO FRACTURE, INITIAL EVALUATION
--- NOTE | 2023-01-06 12:09 | XR ---
EXAMINATION TYPE: XR Hip Complete RT DATE OF EXAM: 01/06/2023 CLINICAL HISTORY: pain TECHNIQUE: AP and frogleg views of the right hip are obtained. COMPARISON: None. FINDINGS: There is no acute fracture/dislocation evident. The joint space appears moderately narro wed. The overlying soft tissue appears unremarkable. IMPRESSION: 1. There is no acute fracture or dislocation. ICD 10 NO FRACTURE, INITIAL EVALUATION
== END | disposition home or self-care (01) ==
LOC: RADXRYALE 11:07
PROVIDERS: ATTEND Nurse Practitioner Family
DX: M25.551 Pain in right hip (principal); M25.561 Pain in right knee; W19.XXXA Unspecified fall, initial encounter
CPT/HCPCS: 73502

== ENCOUNTER 2023-06-11 17:27 | Inpatient (IN) | payer MEDICARE, BC ==
--- NOTE | 2023-06-11 19:36 | ED ---
Arrhythmia/Palpitations HPI - General Chief Complaint: Arrhythmia/Palpitations Stated Complaint: AFIB, new on set Time Seen by Provider: 06/11/23 18:20 Source: patient, EMS Mode of arrival: EMS Limitations: no limitations - History of Present Illness Initial Comments: 83-year-old female presents as a transfer from [place]. Patient was getting a blood transfusion by her primary care because of history of hairy cell leukemia which was diagnosed 3 years ago. She was getting her blood transfusion at the hospitaland they noticed she went into an irregular heart rhythm. transfusion was stopped and the patient was sent to the ED. Patient was found to be in A- fib with a normal heart rate. She does not have a history of A-fib. She did state that she had some palpitations. Patient received half of her first unit. Patient was supposed to receive 2 units of blood. Review of the patient's labs demonstrate a white blood cell count of 225. Hemoglobin of 7.2. Platelets 92. Patient admits that she was recently started on Bumex today and was given 1 dose. Due to new onset A-fib patient was transferred to our facility for further evaluation. Patient is found to be wearing 2 L of oxygen. She states she normally does not wear oxygen at home. Patient has significant lower extremity edema - Related Data Home Medications Medication Instructions Recorded Confirmed Magnesium Gluconate [Magonate] 250 mg PO HS 12/08/14 01/27/17 [place]-3S/Dha/Epa/Fish Oil [[place]-3 1 cap PO DAILY 12/08/14 01/27/17 Fish Oil 1,000 mg Sfgl] Losartan Potassium 50 mg PO QAM 01/08/17 01/27/17 Multivitamin/Iron/Folic Acid 1 tab PO DAILY 01/08/17 01/27/17 [Centrum Women Tablet] Acetaminophen [Tylenol] 500 mg PO Q4-6H PRN 01/22/17 01/27/17 Previous Rx's Medication Instructions Recorded Aspirin 325 mg PO DAILY #30 tab 01/29/17 HYDROcodone/APAP 7.5-325MG [Saxon 1 - 2 tab PO Q4-6H PRN #90 tab 01/29/17 7.5-325] Sennosides-Docusate Sodium 2 tab PO DAILY #30 tablet 01/29/17 [Senokot-S] Warfarin [Coumadin] 2.5 mg PO DIRECTED #30 tab 01/29/17 Artificial Tears-Hypromellose 1 drops BOTH EYES QID PRN bottle 01/30/17 [Artificial Tear Drops] Magnesium Hydroxide [Milk of 2,400 mg PO DAILY PRN dose 01/30/17 Magnesia Concentrate] Na Phos,M-B/Na Phos,Di-Ba [Fleet 133 ml RECTAL DAILY PRN package 01/30/17 Adult] SILVER sulfADIAZINE CREAM 1 applic TOPICAL BID #1 tube 01/30/17 [Silvadene Cream] Sennosides-Docusate Sodium 2 each PO HS tab 01/30/17 [Senokot-S] bisacodyL [Dulcolax] 10 mg RECTAL DAILY PRN suppositor 01/30/17 Allergies Allergy/AdvReac Type Severity Reaction Status Date / Time No Known Allergies Allergy Verified 06/11/23 18:17 Review of Systems ROS Statement: Those systems with pertinent positive or pertinent negative responses have been documented in the HPI. ROS Other: All systems not noted in ROS Statement are negative. Past Medical History Past Medical History: Heart Failure, Hyperlipidemia, Hypertension, Osteoarthritis (OA) Additional Past Medical History / Comment(s): tx UTI,varicose veins,steroid injection 12-10-16,stress incontinence History of Any Multi-Drug Resistant Organisms: None Reported Past Surgical History: Appendectomy, Cholecystectomy, Hysterectomy, Joint Replacement Additional Past Surgical History / Comment(s): Total R knee arthroplasty,partial hyst Past Anesthesia/Blood Transfusion Reactions: Postoperative Nausea & Vomiting (PONV) Additional Past Anesthesia/Blood Transfusion Reaction / Comment(s): no hx blood transfusion Past Psychological History: No Psychological Hx Reported Past Alcohol Use History: Occasional Past Drug Use History: None Reported - Past Family History Brother(s) Family Medical History: Cancer Additional Family Medical History / Comment(s): lung Father Family Medical History: Dementia Additional Family Medical History / Comment(s): at age 91 Mother Family Medical History: Dementia Additional Family Medical History / Comment(s): at age 91 General Exam Limitations: no limitations General appearance: alert, in no apparent distress Head exam: Present: atraumatic, normocephalic, normal inspection Eye exam: Present: normal appearance, PERRL, EOMI. Absent: scleral icterus, conjunctival injection, periorbital swelling ENT exam: Present: normal exam, mucous membranes moist Respiratory exam: Present: rales Cardiovascular Exam: Present: regular rate, irregular rhythm GI/Abdominal exam: Present: soft, normal bowel sounds. Absent: distended, tenderness, guarding, rebound, rigid Extremities exam: Present: pedal edema, other (Hematoma noted to the posterior aspect of the left leg) Neurological exam: Present: alert, oriented X3, CN II-XII intact Psychiatric exam: Present: normal affect, normal mood Skin exam: Present: warm, dry, intact, normal color. Absent: rash Course Vital Signs 06/11/23 06/11/23 06/11/23 18:17 18:45 19:30 Temperature 98.2 F Pulse Rate 82 87 87 Respiratory 18 18 18 Rate Blood Pressure 152/81 156/83 O2 Sat by Pulse 93 L 95 95 Oximetry Medical Decision Making - Medical Decision Making Was pt. sent in by a medical professional or institution (, PA, METAL MELTER, urgent care, hospital, or senior care...) When possible be specific @ -Patient was sent from [facility] Did you speak to anyone other than the patient for history (EMS, parent, family, police, friend...)? What history was obtained from this source @ -Spoke with transferring physician Did you review nursing and triage notes (agree or disagree)? Why? @ -I reviewed and agree with nursing and triage notes Were old charts reviewed (outside hosp., previous admission, EMS record, old EKG, old radiological studies, urgent care reports/EKG's, senior care records)? Report findings @ -I reviewed the patient's transfer note from [facility] Differential Diagnosis (chest pain, altered mental status, abdominal pain women, abdominal pain men, vaginal bleeding, weakness, fever, dyspnea, syncope, headache, dizziness, GI bleed, back pain, seizure, CVA, palpatations, mental health, musculoskeletal)? @ -Differential Dyspnea: Coronary syndrome, arrhythmia, tamponade, asthma, COPD, pulmonary embolism, pneumonia, pneumothorax, pulmonary effusion, anaphylaxis, diabetic ketoacidosis, flailed chest, pulmonary contusion, diaphragmatic rupture, anemia, neuromuscular, this is not meant to be an all-inclusive list. EKG interpreted by me (3pts min.). @ -Yes and demonstrates A-fib with a rate of 82. QRS 97. QTc of 396. No acute ST segment elevations or depressions X-rays interpreted by me (1pt min.). @ -Previously done at outside facility which demonstrated congestive heart failure CT interpreted by me (1pt min.). @ -None done U/S interpreted by me (1pt. min.). @ -None done What testing was considered but not performed or refused? (CT, X-rays, U/S, labs)? Why? @ -None What meds were considered but not given or refused? Why? @ -None Did you discuss the management of the patient with other professionals (ari jamison i.e. , PA, METAL MELTER, lab, RT, psych nurse, elementary school social worker, hematology specialist, teacher, loan service officer, adult protective caseworker)? Give summary @ -Spoke with Dr. Penny who agreed to admit the patient Was smoking cessation discussed for >3mins.? @ -No Was critical care preformed (if so, how long)? @ -No Were there social determinants of health that impacted care today? How? (Homelessness, low income, unemployed, alcoholism, drug addiction, transportation, low edu. Level, literacy, decrease access to med. care, shelter, rehab)? @ -No Was there de-escalation of care discussed even if they declined (Discuss DNR or withdrawal of care, Hospice)? DNR status @ -No What co-morbidities impacted this encounter? (DM, HTN, Smoking, COPD, CAD, Cancer, CVA, ARF, Chemo, Hep., AIDS, mental health diagnosis, sleep apnea, morbid obesity)? @ -Leukemia Was patient admitted / discharged? Hospital course, mention meds given and route, prescriptions, significant lab abnormalities, going to OR and other pertinent info. @ -Admitted. Upon arrival patient was placed into room 13. Thorough history and physical exam was performed. I did review the patient's transfer packet. I additionally ordered new laboratory studies. Patient's hemoglobin is 8 at this time. She did receive a dose of Bumex earlier today. I do not feel that the patient needs blood at this time but would likely benefit from diuresis. She is hypoxic on room air and therefore continues to remain on 2 L of oxygen. Patient remains in A-fib with a controlled rate. I did recommend admission for cardiology and oncology. Patient was agreeable to this. She currently remains in stable condition awaiting a bed on the floor Undiagnosed new problem with uncertain prognosis? @ -Yes Drug Therapy requiring intensive monitoring for toxicity (Heparin, Nitro, Insulin, Cardizem)? @ -No Were any procedures done? @ -No Diagnosis/symptom? @ -Acute anemia, history of hairy cell leukemia, new onset A-fib, exacerbation of heart failure Acute, or Chronic, or Acute on Chronic? @ -Acute Uncomplicated (without systemic symptoms) or Complicated (systemic symptoms)? @ -Complicated Side effects of treatment? @ -No Exacerbation, Progression, or Severe Exacerbation? @ -No Poses a threat to life or bodily function? How? (Chest pain, USA, LA, pneumonia, PE, COPD, DKA, ARF, appy, cholecystitis, CVA, Diverticulitis, Homicidal, Suicidal, threat to staff... and all critical care pts) @ -No - Lab Data Result diagrams: 06/11/23 19:35 06/11/23 19:35 Lab Results 06/11/23 06/11/23 06/11/23 Range/Units 19:35 19:35 19:35 WBC 289.2 H* (3.8-10.6) k/uL RBC 2.38 L (3.80-5.40) m/uL Hgb 8.0 L (11.4-16.0) gm/dL Hct 25.5 L (34.0-46.0) % MCV 107.1 H (80.0-100.0) fL MCH 33.5 (25.0-35.0) pg MCHC 31.3 (31.0-37.0) g/dL RDW 18.6 H (11.5-15.5) % MPV 11.0 Hypochromasia Marked Poikilocytosis Slight Anisocytosis Slight Macrocytosis Marked A PT 14.2 H (10.0-12.5) sec INR 1.4 H (<1.2) APTT 26.1 (22.0-30.0) sec Sodium 138 (137-145) mmol/L Potassium 4.3 (3.5-5.1) mmol/L Chloride 105 (98-107) mmol/L Carbon Dioxide 26 (22-30) mmol/L Anion Gap 7 mmol/L BUN 41 H (7-17) mg/dL Creatinine 1.45 H (0.52-1.04) mg/dL Est GFR (CKD-EPI)AfAm 38 (>60 ml/min/1.73 sqM) Est GFR (CKD-EPI)NonAf 33 (>60 ml/min/1.73 sqM) Glucose 101 H (74-99) mg/dL Calcium 11.6 H (8.4-10.2) mg/dL Total Bilirubin 2.4 H (0.2-1.3) mg/dL AST 35 (14-36) U/L ALT 11 (4-34) U/L Alkaline Phosphatase 78 (38-126) U/L Troponin I (0.000-0.034) ng/mL Total Protein 5.3 L (6.3-8.2) g/dL Albumin 3.2 L (3.5-5.0) g/dL 06/11/23 Range/Units 19:35 WBC (3.8-10.6) k/uL RBC (3.80-5.40) m/uL Hgb (11.4-16.0) gm/dL Hct (34.0-46.0) % MCV (80.0-100.0) fL MCH (25.0-35.0) pg MCHC (31.0-37.0) g/dL RDW (11.5-15.5) % MPV Hypochromasia Poikilocytosis Anisocytosis Macrocytosis PT (10.0-12.5) sec INR (<1.2) APTT (22.0-30.0) sec Sodium (137-145) mmol/L Potassium (3.5-5.1) mmol/L Chloride (98-107) mmol/L Carbon Dioxide (22-30) mmol/L Anion Gap mmol/L BUN (7-17) mg/dL Creatinine (0.52-1.04) mg/dL Est GFR (CKD-EPI)AfAm (>60 ml/min/1.73 sqM) Est GFR (CKD-EPI)NonAf (>60 ml/min/1.73 sqM) Glucose (74-99) mg/dL Calcium (8.4-10.2) mg/dL Total Bilirubin (0.2-1.3) mg/dL AST (14-36) U/L ALT (4-34) U/L Alkaline Phosphatase (38-126) U/L Troponin I <0.012 (0.000-0.034) ng/mL Total Protein (6.3-8.2) g/dL Albumin (3.5-5.0) g/dL Disposition Clinical Impression: Atrial fibrillation, Anemia, Leukemia, CHF (congestive heart failure) Disposition: ADMITTED IP TO THIS [facility] Condition: Stable Is patient prescribed a controlled substance at d/c from ED?: No Time of Disposition: 20:17 Decision to Admit Reason: Admit from EC Decision Date: 06/11/23 Decision Time: 20:17
[2023-06-11 19:42] LABS: Anisocytosis Slight; HCT 25.5 % (34.0-46.0); Hypochromasia Marked; MCH 33.5 pg (25.0-35.0); MCHC 31.3 g/dL (31.0-37.0); MCV 107.1 fL (80.0-100.0); Macrocytosis Marked; Poikilocytosis Slight; RBC 2.38 m/uL (3.80-5.40); RDW 18.6 % (11.5-15.5)
[2023-06-11 19:56] LABS: ALT 11 U/L (4-34); AST 35 U/L (14-36); African American GFR (CKD) 38 (>60 ml/min/1.73 sqM); Albumin 3.2 g/dL (3.5-5.0); Alkaline Phosphatase 78 U/L (38-126); Anion Gap 7 mmol/L; Blood Urea Nitrogen 41 mg/dL (7-17); Calcium 11.6 mg/dL (8.4-10.2); Carbon Dioxide 26 mmol/L (22-30); Chloride 105 mmol/L (98-107); Glucose 101 mg/dL (74-99); Non-African American GFR(CKD) 33 (>60 ml/min/1.73 sqM); Potassium 4.3 mmol/L (3.5-5.1); Sodium 138 mmol/L (137-145); Total Bilirubin 2.4 mg/dL (0.2-1.3); Total Protein 5.3 g/dL (6.3-8.2); WBC 289.2 k/uL (3.8-10.6)
[2023-06-11 20:12] LABS: INR 1.4 (<1.2); Partial Thromboplastin Time 26.1 sec (22.0-30.0); Prothrombin Time 14.2 sec (10.0-12.5)
[2023-06-11] MEDS ORDERED: NALOXONE 0.4 MG/ML 1 ML VIAL IV PRN (20:17)
[2023-06-11] MEDS ORDERED: ARTIFICIAL TEARS-HYPROMELLOSE DROPS 15 ML BTL BOTH EYES PRN (21:02)
[2023-06-11 21:32] LABS: Lymphocytes # (M) 274.74 k/uL (1.0-4.8); Neutrophils # (M) 11.57 k/uL (1.3-7.7); Neutrophils % (M) 4 %
[2023-06-11 21:33] LABS: Monocytes # (M) 2.89 k/uL (0-1.0); Nucleated Red Blood Cells 0 /100 WBC (0-0); Platelet Count 42 k/uL (150-450); Total Cells Counted 100
[2023-06-11 21:34] LABS: Hypochromasia (M) Present
[2023-06-11] MEDS: SENNOSIDES-DOCUSATE SODIUM 1 EACH TAB PO SCH (23:22)
[2023-06-12] MEDS: ASPIRIN 325 MG TAB PO SCH (08:08)
[2023-06-12] MEDS: LOSARTAN 50 MG TAB PO SCH (08:49)
[2023-06-12] MEDS: carvediloL 3.125 MG TAB PO SCH (08:49)
[2023-06-12] MEDS: FUROSEMIDE 10 MG/ML 4 ML VIAL IV SCH (08:49)
[2023-06-12 09:00] LABS: Anisocytosis Slight; HCT 26.2 % (34.0-46.0); HGB 8.5 gm/dL (11.4-16.0); Hypochromasia Marked; MCH 35.9 pg (25.0-35.0); MCHC 32.4 g/dL (31.0-37.0); Macrocytosis Marked; Mean Platelet Volume 10.2; RBC 2.36 m/uL (3.80-5.40); RDW 18.4 % (11.5-15.5)
[2023-06-12 09:17] LABS: African American GFR (CKD) 38 (>60 ml/min/1.73 sqM); Anion Gap 8 mmol/L; Blood Urea Nitrogen 40 mg/dL (7-17); Calcium 11.7 mg/dL (8.4-10.2); Carbon Dioxide 27 mmol/L (22-30); Chloride 107 mmol/L (98-107); Glucose 95 mg/dL (74-99); Non-African American GFR(CKD) 33 (>60 ml/min/1.73 sqM); Potassium 4.2 mmol/L (3.5-5.1); Sodium 142 mmol/L (137-145)
[2023-06-12 09:25] LABS: NT-Pro-B-Type Natriuretic Pept 1430 pg/mL
--- NOTE | 2023-06-12 09:40 | P.CRDCN ---
History of Present Illness Consult date: 06/12/23 Consult reason: atrial fibrillation (new onset), congestive heart failure History of present illness: History of present illness: This is an 83-year-old female patient with past medical history of leukemia not on chemotherapy, chronic lower extremity edema, hypertension. We have been asked to evaluate the patient for CHF and new onset of atrial fibrillation. Patient states that she does not follow with a treasury director and has never had a cardiac catheterization, stress test or open heart surgery. Patient states that her PCP found her blood work to be off and she was sent in for a blood transfusion. From there, she was sent into the emergency center due to abnormal respiratory care faculty. Patient was found to be in atrial fibrillation which is new for her. Patient is seen today in the emergency center waiting for bed on the cardiac stepdown unit. EKG atrial fibrillation with ventricular rate of 82. WBC 289, hemoglobin 8, platelet count 42. INR 1.4. Electrolytes normal. BUN 41 creatinine 1.45 Home cardiac medications: Bumex 1 mg daily, Lasix 60 mg daily, losartan 50 mg daily, magnesium gluconate 250 mg bedtime. Review Of Systems: At the time of my exam: CONSTITUTIONAL: Denies fever or chills. HEENT: Denies blurred vision, vision changes, or eye pain. Denies hemoptysis CARDIOVASCULAR: Denies chest pain. Denies orthopnea. Denies PND. Denies palpitations. Chronic lower extremity edema. RESPIRATORY: Denies shortness of breath. GASTROINTESTINAL: Denies abdominal pain. Denies nausea or vomiting. HEMATOLOGIC: Denies bleeding disorders. GENITOURINARY: Denies any blood in urine. SKIN: Denies pruitis. Denies rash. Physical examination: Gen: This is an 83-year-old female in no acute distress VS: reviewed blood pressure 158/69, heart rate 84, pulse ox 92% on 3 L nasal cannula. HEENT: Head is atraumatic, normocephalic. Pupils equal, round. Sclerae is anicteric. NECK: Supple. No JVD. LUNGS: Diminished air entry. No intercostal retractions. HEART: Irregular rate and rhythm. 3/6 systolic murmur. ABDOMEN: Soft No tenderness. EXTREMITIES: Moderate bilateral lower extremity pitting edema. Chronic lower extremity skin changes. NEUROLOGICAL: Patient is awake, alert and oriented x3. Assessment: New onset atrial fibrillation, persistent Leukemia not on chemotherapy New onset of heart failure Chronic kidney disease stage III Plan: Continue patient's home cardiac medications Start patient on IV Lasix 40 mg every 12 hours Monitor YESSICA, daily weights, electrolytes and renal function Start patient on Coreg 3.25 mg twice daily Obtain BNP Obtain chest x-ray Obtain 2-D echocardiogram and Doppler study to assess cardiac structure and function Patient has not been started on anticoagulation due to leukemia. Further recommendations to follow based upon clinical course Thank you kindly for this consultation. Nurse practitioner note has been reviewed, I agree with documented findings and plan of care. Patient was seen and examined. Past Medical History Past Medical History: Heart Failure, Hyperlipidemia, Hypertension, Osteoarthritis (OA) Additional Past Medical History / Comment(s): tx UTI,varicose veins,steroid injection 12-10-16,stress incontinence History of Any Multi-Drug Resistant Organisms: None Reported Past Surgical History: Appendectomy, Cholecystectomy, Hysterectomy, Joint Replacement Additional Past Surgical History / Comment(s): Total R knee arthroplasty,partial hyst Past Anesthesia/Blood Transfusion Reactions: Postoperative Nausea & Vomiting (PONV) Additional Past Anesthesia/Blood Transfusion Reaction / Comment(s): no hx blood transfusion Past Psychological History: No Psychological Hx Reported Past Alcohol Use History: Occasional Past Drug Use History: None Reported - Past Family History Brother(s) Family Medical History: Cancer Additional Family Medical History / Comment(s): lung Father Family Medical History: Dementia Additional Family Medical History / Comment(s): at age 91 Mother Family Medical History: Dementia Additional Family Medical History / Comment(s): at age 91 Medications and Allergies Home Medications Medication Instructions Recorded Confirmed Type Magnesium Gluconate [Magonate] 250 mg PO HS 12/08/14 06/11/23 History Losartan Potassium 50 mg PO DAILY 01/08/17 06/11/23 History Multivitamin/Iron/Folic Acid 1 tab PO DAILY 01/08/17 06/11/23 History [Centrum Women Tablet] ALPRAZolam [Xanax] 0.25 mg PO BID PRN 06/11/23 06/11/23 History Bumetanide [Bumex] 1 mg PO DAILY 06/11/23 06/11/23 History Furosemide [Lasix] 60 mg PO DAILY 06/11/23 06/11/23 History Meclizine [Antivert] 25 mg PO BID PRN 06/11/23 06/11/23 History Allergies Allergy/AdvReac Type Severity Reaction Status Date / Time No Known Allergies Allergy Verified 06/11/23 21:53 Physical Exam Vitals: Vital Signs Temp Pulse Pulse Resp BP BP Pulse Ox 06/12/23 08:07 98.2 F 84 17 158/69 92 L 06/12/23 04:00 16 143/62 93 L 06/12/23 00:00 88 18 154/67 99 06/11/23 22:00 87 18 154/86 95 06/11/23 19:30 87 18 156/83 95 06/11/23 18:45 87 18 152/81 95 06/11/23 18:17 98.2 F 82 18 93 L Intake and Output 06/11/23 06/12/23 06/12/23 22:59 06:59 14:59 Output Total 250 Balance -250 Output: Urine 250 Other: Weight 71.214 kg Results 06/11/23 19:35 06/12/23 08:36 Cardiac Enzymes 06/11/23 06/11/23 06/11/23 Range/Units 19:35 19:35 20:49 AST 35 (14-36) U/L Troponin I <0.012 <0.012 (0.000-0.034) ng/mL Coagulation 06/11/23 Range/Units 19:35 PT 14.2 H (10.0-12.5) sec APTT 26.1 (22.0-30.0) sec CBC 06/11/23 Range/Units 19:35 WBC 289.2 H* (3.8-10.6) k/uL RBC 2.38 L (3.80-5.40) m/uL Hgb 8.0 L (11.4-16.0) gm/dL Hct 25.5 L (34.0-46.0) % Plt Count 42 L (150-450) k/uL Comprehensive Metabolic Panel 06/11/23 Range/Units 19:35 Sodium 138 (137-145) mmol/L Potassium 4.3 (3.5-5.1) mmol/L Chloride 105 (98-107) mmol/L Carbon Dioxide 26 (22-30) mmol/L BUN 41 H (7-17) mg/dL Creatinine 1.45 H (0.52-1.04) mg/dL Glucose 101 H (74-99) mg/dL Calcium 11.6 H (8.4-10.2) mg/dL AST 35 (14-36) U/L ALT 11 (4-34) U/L Alkaline Phosphatase 78 (38-126) U/L Total Protein 5.3 L (6.3-8.2) g/dL Albumin 3.2 L (3.5-5.0) g/dL Current Medications Generic Name Dose Route Start Last Admin Trade Name Freq PRN Reason Stop Dose Admin Artificial Tears 1 drops 06/11/23 21:02 Artificial Tears-Hypromellose Drops 15 Ml Btl BOTH EYES QID PRN Dry Eye(s) Aspirin 325 mg 06/12/23 09:00 06/12/23 08:08 Aspirin 325 Mg Tab PO 325 mg DAILY ELYSE Administration Naloxone HCl 0.2 mg 06/11/23 20:17 Naloxone 0.4 Mg/Ml 1 Ml Vial IV Q2M PRN Opioid Reversal Senna/Docusate Sodium 2 each 06/11/23 21:15 06/11/23 23:22 Sennosides-Docusate Sodium 1 Each Tab PO 2 each HS ELYSE Administration Intake and Output 06/11/23 06/12/23 06/12/23 22:59 06:59 14:59 Output Total 250 Balance -250 Output: Urine 250 Other: Weight 71.214 kg 06/11/23 19:35 06/11/23 19:35
[2023-06-12 09:41] LABS: Platelet Count 42 k/uL (150-450)
--- NOTE | 2023-06-12 11:45 | XR ---
EXAMINATION TYPE: XR chest 2V DATE OF EXAM: 06/12/2023 9:27 AM CLINICAL INDICATION:Female, 83 years old with history of chf; [facility] COMPARISON: Chest radiographs from 12/28/2014. TECHNIQUE: XR chest 2V Frontal and lateral views of the chest. FINDINGS: Lungs/Pleura: There is no evidence of pleural effusion, focal consolidation, or pneumothorax. Pulmonary vascularity: Pulmonary vascular congestion. Heart/mediastinum: Cardiomediastinal silhouette is enlarged and stable. Musculoskeletal: No acute osseous pathology. IMPRESSION: Cardiomegaly and mild pulmonary vascular congestion. Correlate with BNP for congestive heart failure.
[2023-06-12 11:58] LABS: Eosinophils # (M) 2.78 k/uL (0-0.7); Lymphocytes # (M) 267.17 k/uL (1.0-4.8); Myelocytes % 1 %; Neutrophils % (M) 3 %; Nucleated Red Blood Cells 1 /100 WBC (0-0); Total Cells Counted 200; WBC 278.3 k/uL (3.8-10.6)
[2023-06-12 11:59] LABS: Monocytes # (M) 2.78 k/uL (0-1.0); Myelocytes # (M) 2.78 k/uL (0); Neutrophils # (M) 8.35 k/uL (1.3-7.7)
[2023-06-12 12:00] LABS: Poikilocytosis (M) Present; Polychromasia Present
--- NOTE | 2023-06-12 17:08 | P.HPIM ---
History of Present Illness H&P Date: 06/12/23 Chief Complaint: Palpitation This is a pleasant 83-year-old patient, with chronic stable medical conditions include possible CHF, hypertension, hyperlipidemia, osteoarthritis varicose veins urinary stress incontinence. Patient was at [facility] and was ordered 2 units of blood. Was offered through first unit when she developed palpitation. Went into atrial fibrill ation with rapid ventricular rate. No prior history of A-fib. Patient has a white count greater than 200. Has lower extremity edema. Some tiredness. Patient rather clear and does not want any further workup for her supposedly leukemia. Review of systems: GEN.: Tired EYES: None HEENT: None NECK: None RESPIRATORY: None CARDIOVASCULAR: As above e GASTROINTESTINAL: None GENITOURINARY: None MUSCULOSKELETAL: Joint pains LYMPHATICS: None HEMATOLOGICAL: None PSYCHIATRY: None NEUROLOGICAL: Uses a walker] Social history: Lives alone. Does use a walker. Patient smoked for 39 years less than a pack a day stopped in 1992. Alcohol occasionally. Physical examination: VITAL SIGNS: 98.2, 84, 17, 158 x 69, 92% on 3 L GENERAL: BMI 26.1, reclining bed awake tired. EYES: Pupils equal. Conjunctiva tiana l. HEENT: External appearance of nose and ears normal, oral cavity grossly normal. NECK: JVD not raised; masses not palpable. HEART: Heart sounds are regular, some edema. LUNGS: Respiratory rate normal; clear to auscultation. ABDOMEN: Soft, nontender, liver spleen not palpable, no masses palpable. PSYCH: Alert and oriented x3; mood and affect tiana l. MUSCULOSKELETAL:No Clubbing/cyanosis;muscles-grossly intact. OA NEUROLOGICAL: Cranial nerves grossly intact; no facial asymmetry, power and sensation grossly intact. LYMPHATICS: No lymph nodes palpable in the axilla and neck INVESTIGATIONS, reviewed in the clinical context: June 12: White count 278 hemoglobin 8.5 platelets 42 lymphocytes increased to 67 some increase in neutrophils and monocytes eosinophil myelocytes Sodium 142 potassium 4.2 BUN 40 creatinine 1.46 Troponin I less than 0.012 x 2 proBNP 1430 EKG tracing personally reviewed by me-atrial fibrillation. Rate 82 Chest x-ray film personally reviewed by me-cardiomegaly. Some pulmonary artery prominence. Venous prominence. Assessment plan: -Acute congestive heart failure exacerbation. Possibly precipitated also by rapid atrial fibrillation. IV Lasix 40 mg every 12. 2D echo. Telemetry. Cardiology following. -New onset of atrial fibrillation. Rate controlled Coreg 3.125 mg twice daily -Essential hypertension Coreg 3.125 twice daily. Cozaar 50 mg a day. 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 Patient does not want any treatment done. Consultation to hematology has been done. Discussed with patient to at least get an opinion from hematology and take a decision herself regarding if she affords any further treatment or not. -Primary osteoarthritis Tylenol as needed -Chronic lower extremity varicose veins -Urinary stress incontinence -DNR Care was discussed with the patient. Questions answered. Past Medical History Past Medical History: Heart Failure, Hyperlipidemia, Hypertension, Osteoarthritis (OA) Additional Past Medical History / Comment(s): tx UTI,varicose veins,steroid injection 12-10-16,stress incontinence History of Any Multi-Drug Resistant Organisms: None Reported Past Surgical History: Appendectomy, Cholecystectomy, Hysterectomy, Joint Replacement Additional Past Surgical History / Comment(s): Total R knee arthroplasty,partial hyst Past Anesthesia/Blood Transfusion Reactions: Postoperative Nausea & Vomiting (PONV) Additional Past Anesthesia/Blood Transfusion Reaction / Comment(s): no hx blood transfusion Past Psychological History: No Psychological Hx Reported Past Alcohol Use History: Occasional Past Drug Use History: None Reported - Past Family History Brother(s) Family Medical History: Cancer Additional Family Medical History / Comment(s): lung Father Family Medical History: Dementia Additional Family Medical History / Comment(s): at age 91 Mother Family Medical History: Dementia Additional Family Medical History / Comment(s): at age 91 Medications and Allergies Home Medications Medication Instructions Recorded Confirmed Type Magnesium Gluconate [Magonate] 250 mg PO HS 12/08/14 06/11/23 History Losartan Potassium 50 mg PO DAILY 01/08/17 06/11/23 History Multivitamin/Iron/Folic Acid 1 tab PO DAILY 01/08/17 06/11/23 History [Centrum Women Tablet] ALPRAZolam [Xanax] 0.25 mg PO BID PRN 06/11/23 06/11/23 History Bumetanide [Bumex] 1 mg PO DAILY 06/11/23 06/11/23 History Furosemide [Lasix] 60 mg PO DAILY 06/11/23 06/11/23 History Meclizine [Antivert] 25 mg PO BID PRN 06/11/23 06/11/23 History Allergies Allergy/AdvReac Type Severity Reaction Status Date / Time No Known Allergies Allergy Verified 06/11/23 21:53 Physical Exam Vitals: Vital Signs Temp Pulse Pulse Resp BP BP Pulse Ox 06/12/23 08:07 98.2 F 84 17 158/69 92 L 06/12/23 04:00 16 143/62 93 L 06/12/23 00:00 88 18 154/67 99 06/11/23 22:00 87 18 154/86 95 06/11/23 19:30 87 18 156/83 95 06/11/23 18:45 87 18 152/81 95 06/11/23 18:17 98.2 F 82 18 93 L Intake and Output 06/11/23 06/12/23 06/12/23 22:59 06:59 14:59 Output Total 250 Balance -250 Output: Urine 250 Other: Weight 71.214 kg 71.214 kg Results CBC & Chem 7: 06/12/23 08:25 06/12/23 08:36 Labs: Abnormal Lab Results - Last 24 Hours (Table) 06/11/23 06/11/23 06/11/23 Range/Units 19:35 19:35 19:35 WBC 289.2 H* (3.8-10.6) k/uL RBC 2.38 L (3.80-5.40) m/uL Hgb 8.0 L (11.4-16.0) gm/dL Hct 25.5 L (34.0-46.0) % MCV 107.1 H (80.0-100.0) fL MCH (25.0-35.0) pg RDW 18.6 H (11.5-15.5) % Plt Count 42 L (150-450) k/uL Neutrophils # (Manual) 11.57 H (1.3-7.7) k/uL Lymphocytes # (Manual) 274.74 H (1.0-4.8) k/uL Monocytes # (Manual) 2.89 H (0-1.0) k/uL Macrocytosis Marked A PT 14.2 H (10.0-12.5) sec INR 1.4 H (<1.2) BUN 41 H (7-17) mg/dL Creatinine 1.45 H (0.52-1.04) mg/dL Glucose 101 H (74-99) mg/dL Calcium 11.6 H (8.4-10.2) mg/dL Total Bilirubin 2.4 H (0.2-1.3) mg/dL Total Protein 5.3 L (6.3-8.2) g/dL Albumin 3.2 L (3.5-5.0) g/dL 06/12/23 06/12/23 Range/Units 08:25 08:36 WBC 281.1 H* (3.8-10.6) k/uL RBC 2.36 L (3.80-5.40) m/uL Hgb 8.5 L (11.4-16.0) gm/dL Hct 26.2 L (34.0-46.0) % MCV 111.0 H (80.0-100.0) fL MCH 35.9 H (25.0-35.0) pg RDW 18.4 H (11.5-15.5) % Plt Count 42 L (150-450) k/uL Neutrophils # (Manual) (1.3-7.7) k/uL Lymphocytes # (Manual) (1.0-4.8) k/uL Monocytes # (Manual) (0-1.0) k/uL Macrocytosis Marked A PT (10.0-12.5) sec INR (<1.2) BUN 40 H (7-17) mg/dL Creatinine 1.46 H (0.52-1.04) mg/dL Glucose (74-99) mg/dL Calcium 11.7 H (8.4-10.2) mg/dL Total Bilirubin (0.2-1.3) mg/dL Total Protein (6.3-8.2) g/dL Albumin (3.5-5.0) g/dL
--- NOTE | 2023-06-12 19:07 | P.CONS ---
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 She was admitted for knee replacement and was found to have elevated WBC with absolute lymphocytosis. 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 The former was favored given lack of cytopenias and very indolent course. The patient was recommended observation with follow-up in the office but she did not do so. In 03/14 WBC was stable in the same range at 13.1, platelets 115 and hemoglobin 12.6. Absolute lymphocyte count was 10.48. 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 The patient was referred here again in 04/2019, CBC on 04/02/19 showed marked increase in WBC to 193 with ALC 184. Hemoglobin was normal at 13.7 and platelets stable at 101. She denied any B symptoms, or lymph node enlargement. Spleen was noted to be enlarged on exam. Treated with weekly Rituxan 4, completing those on 06/24/19. She did well after that, had 2 telemedicine visits, repeat blood work 08/30/2019 showed WBCs 248, hemoglobin 13, platelets 120s, no evidence of tumor lysis. Patient was encouraged to continue follow-up but she did not want to do so. Patient is currently admitted after she was receiving a blood transfusion ordered by her primary care, she went into atrial fibrillation and was sent here for workup and management. When seen patient denies any chest pain. She is not able to give much information about her cancer. Review of Systems 10 point review of system difficult to obtain, patient is mildly confused, has trouble with recall of remote and recent events Past Medical History Past Medical History: Cancer, Heart Failure, Hyperlipidemia, Hypertension, Osteoarthritis (OA) Additional Past Medical History / Comment(s): ,varicose veins,steroid injection 12-10-16,stress incontinence, leukemia dx 2019 History of Any Multi-Drug Resistant Organisms: None Reported Past Surgical History: Appendectomy, Cholecystectomy, Hysterectomy, Joint Replacement Additional Past Surgical History / Comment(s): Total R knee arthroplasty and left,partial hyst Past Anesthesia/Blood Transfusion Reactions: Postoperative Nausea & Vomiting (PONV) Additional Past Anesthesia/Blood Transfusion Reaction / Comm: no hx blood transfusion Past Psychological History: Unable to Obtain Smoking Status: Former smoker Past Alcohol Use History: Unable to Obtain Past Drug Use History: Unable to Obtain - Past Family History Brother(s) Family Medical History: Cancer Additional Family Medical History / Comment(s): lung Father Family Medical History: Dementia Additional Family Medical History / Comment(s): at age 91 Mother Family Medical History: Dementia Additional Family Medical History / Comment(s): at age 91 Medications and Allergies Home Medications Medication Instructions Recorded Confirmed Type Magnesium Gluconate [Magonate] 250 mg PO HS 12/08/14 06/11/23 History Losartan Potassium 50 mg PO DAILY 01/08/17 06/11/23 History Multivitamin/Iron/Folic Acid 1 tab PO DAILY 01/08/17 06/11/23 History [Centrum Women Tablet] ALPRAZolam [Xanax] 0.25 mg PO BID PRN 06/11/23 06/11/23 History Bumetanide [Bumex] 1 mg PO DAILY 06/11/23 06/11/23 History Furosemide [Lasix] 60 mg PO DAILY 06/11/23 06/11/23 History Meclizine [Antivert] 25 mg PO BID PRN 06/11/23 06/11/23 History Allergies Allergy/AdvReac Type Severity Reaction Status Date / Time No Known Allergies Allergy Verified 06/11/23 21:53 Physical Exam Vitals: Vital Signs Temp Pulse Pulse Resp BP BP Pulse Ox 06/12/23 08:07 98.2 F 84 17 158/69 92 L 06/12/23 04:00 16 143/62 93 L 06/12/23 00:00 88 18 154/67 99 06/11/23 22:00 87 18 154/86 95 06/11/23 19:30 87 18 156/83 95 06/11/23 18:45 87 18 152/81 95 06/11/23 18:17 98.2 F 82 18 93 L Intake and Output 06/11/23 06/12/23 06/12/23 22:59 06:59 14:59 Output Total 250 Balance -250 Output: Urine 250 Other: Weight 71.214 kg 71.214 kg - Constitutional General appearance: average body habitus, cooperative, no acute distress - EENT Eyes: anicteric sclerae, EOMI ENT: hearing grossly normal, normal oropharynx - Neck Neck: no lymphadenopathy - Respiratory Respiratory: bilateral: CTA - Cardiovascular Rhythm: regular Heart sounds: normal: S1, S2 Abnormal Heart Sounds: no systolic murmur, no diastolic murmur, no rub, no S3 Gallop, no S4 Gallop, no click, no other leg Peripheral Edema: bilateral: Trace - Gastrointestinal General gastrointestinal: soft, splenomegaly (Massive, into the left lower quadrant, not past midline yet) - Integumentary Integumentary: pale - Neurologic Neurologic: CNII-XII intact - Musculoskeletal Musculoskeletal: generalized weakness - Psychiatric Alert and oriented x 2, almost 3, has trouble with recall of remote events and some recent events Psychiatric: appropriate affect Results CBC & Chem 7: 06/12/23 08:25 06/12/23 08:36 Labs: Abnormal Lab Results - Last 24 Hours (Table) 06/11/23 06/11/23 06/11/23 Range/Units 19:35 19:35 19:35 WBC 289.2 H* (3.8-10.6) k/uL RBC 2.38 L (3.80-5.40) m/uL Hgb 8.0 L (11.4-16.0) gm/dL Hct 25.5 L (34.0-46.0) % MCV 107.1 H (80.0-100.0) fL RDW 18.6 H (11.5-15.5) % Plt Count 42 L (150-450) k/uL Neutrophils # (Manual) 11.57 H (1.3-7.7) k/uL Lymphocytes # (Manual) 274.74 H (1.0-4.8) k/uL Monocytes # (Manual) 2.89 H (0-1.0) k/uL Macrocytosis Marked A PT 14.2 H (10.0-12.5) sec INR 1.4 H (<1.2) BUN 41 H (7-17) mg/dL Creatinine 1.45 H (0.52-1.04) mg/dL Glucose 101 H (74-99) mg/dL Calcium 11.6 H (8.4-10.2) mg/dL Total Bilirubin 2.4 H (0.2-1.3) mg/dL Total Protein 5.3 L (6.3-8.2) g/dL Albumin 3.2 L (3.5-5.0) g/dL Chest x-ray: report reviewed Assessment and Plan (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 Freed in 2019, she does not remember this -Patient has not been seen since that time, last note in the medical record states that she did not want to follow-up -Patient has been being followed by her PCP Dr. Massey. Obtained last office v isit note, patient seen earlier this week. -Patient was sent for blood transfusion for hemoglobin in the low 7 range. She went into atrial fibrillation and was sent here for cardiology evaluation. -Patient's WBC 289, low hemoglobin, platelets of 42,000, massive splenomegaly all consistent with recurrent disease. Patient is very firm and the fact that she does not want to have chemotherapy. There are other non-chemotherapy treatment options available, including orals. They could certainly help with symptoms, splenomegaly, make her less transfusion dependent. Will discuss with the patient when there is some family around and after she has had a chance to feel a little bit better, maybe a little clearer thinking. -Tumor lysis labs ordered -Zometa ordered for hypercalcemia. Calcium level ordered for the a.m. Doctor attests: I performed a history and physical examination of this patient, developed impression and plan of care. Discussed with dictator. I agree with dictators note, documented as a scribe.
[2023-06-12] MEDS: ZOLEDRONIC ACID 4 MG in SODIUM CHLORIDE 0.9% 100 ML IV ONE (20:37)
--- NOTE | 2023-06-13 00:03 | CA ---
Transthoracic Echo Report Name: Shirley Nicolas Age: 83 Gender: F : 1940 Exam Date: 06/12/2023 12:03 Exam Location: [facility] Ht (in): 65 Wt (lb): 157 Ordering Physician: Estella Ohara Attending/Referring Phys: [employer] Room Supervisor Jersey [address] RD Procedure CPT: Indications: LVF Cardiac Hx: Technical Quality: Fair Contrast 1: Total Dose (mL): Contrast 2: Total Dose (mL): MEASUREMENTS (Male / Female) Normal Values 2D ECHO LV Diastolic Diameter PLAX 4.4 cm 4.2 - 5.9 / 3.9 - 5.3 cm LV Systolic Diameter PLAX 3.0 cm IVS Diastolic Thickness 1.1 cm 0.6 - 1.0 / 0.6 - 0.9 cm LVPW Diastolic Thickness 0.9 cm 0.6 - 1.0 / 0.6 - 0.9 cm LV Relative Wall Thickness 0.5 RV Internal Dim ED PLAX 3.2 cm LVOT Diameter 1.8 cm Aortic Root Diameter 2.6 cm LA Systolic Diameter LX 3.0 cm 3.0 - 4.0 / 2.7 - 3.8 cm LV Diastolic Volume MOD BP 63.9 cm??? 67 - 155 / 56 - 104 cm??? LV Systolic Volume MOD BP 23.5 cm??? - 58 / 19 - 49 cm??? LV Ejection Fraction MOD BP 63.2 % >= 55 % LV Cardiac Index MOD BP 1597.2 cm???/min???m??? LV Diastolic Volume MOD 4C 53.8 cm??? LV Systolic Volume MOD 4C 19.3 cm??? LV Ejection Fraction MOD 4C 64.1 % LV Cardiac Index MOD 4C 1364.7 cm???/min???m??? LV Diastolic Length 4C 7.2 cm LV Systolic Length 4C 6.5 cm LV Diastolic Volume MOD 2C 71.6 cm??? LV Systolic Volume MOD 2C 27.8 cm??? LV Ejection Fraction MOD 2C 61.2 % LV Cardiac Index MOD 2C 1732.4 cm???/min???m??? LV Diastolic Length 2C 7.6 cm LV Systolic Length 2C 6.2 cm LA Volume 50.9 cm??? 18 - 58 / 22 - 52 cm??? LA Volume Index 28.0 cm???/m??? 16 - 28 cm???/m??? DOPPLER AV Peak Velocity 158.7 cm/s AV Peak Gradient 10.1 mmHg AV Mean Velocity 111.5 cm/s AV Mean Gradient 5.6 mmHg AV Velocity Time Integral 36.1 cm LVOT Peak Velocity 108.3 cm/s LVOT Peak Gradient 4.7 mmHg LVOT Velocity Time Integral 24.6 cm LVOT Stroke Volume 63.6 cm??? LVOT Stroke Volume Index 35.7 ml/m??? LVOT Cardiac Index 2515.9 cm???/min???m??? AV Area Cont Eq vti 1.8 cm??? AV Area Cont Eq pk 1.8 cm??? MV Peak Velocity 137.2 cm/s MV Peak Gradient 7.5 mmHg MV Mean Velocity 65.4 cm/s MV Mean Gradient 2.1 mmHg MV Velocity Time Integral 39.3 cm MR Peak Velocity 357.1 cm/s MR Peak Gradient 51.0 mmHg Mitral E Point Velocity 111.0 cm/s Mitral A Point Velocity 28.1 cm/s Mitral E to A Ratio 4.0 MV Deceleration Time 260.4 ms MV E' Velocity 8.7 cm/s Mitral E to MV E' Ratio 12.7 TR Peak Velocity 264.6 cm/s TR Peak Gradient 28.0 mmHg Right Ventricular Systolic Press 33.0 mmHg PV Peak Velocity 124.5 cm/s PV Peak Gradient 6.2 mmHg FINDINGS Left Ventricle Normal LV size and wall thickness. Left ventricular ejection fraction is estimated at 55-60 %. Right Ventricle Normal right ventricular size. RVSP= 33mmHg. Right Atrium Normal right atrial size. Left Atrium Mild left atrial dilatation. LA volume index= 28ml/m2 Mitral Valve Mild mitral annular and valvular calcification. Mild to moderate MR. Aortic Valve Trileaflet aortic valve. Mild calcification. Tricuspid Valve Structurally normal tricuspid valve. Mild TR. Pulmonic Valve Pulmonic valve not well visualized. Moderate PI. Pericardium Normal pericardium. Aorta Normal size aortic root. CONCLUSIONS Left ventricular ejection fraction 55-60% RVSP 33 Mild to moderate mitral regurgitation Mild tricuspid regurgitation No pericardial effusion Previewed by: Dr. Félix Hu DO (Electronically Signed) Final Date: 13 June 2023 00:03
[2023-06-13 01:41] LABS: Phosphorus 3.8 mg/dL (2.5-4.5); Uric Acid 13.2 mg/dL (3.7-7.4)
[2023-06-13 08:10] VITALS: RESP 18
[2023-06-13] MEDS: FUROSEMIDE 40 MG TAB PO SCH (08:39)
--- NOTE | 2023-06-13 09:18 | P.PN ---
Subjective Progress Note Date: 06/13/23 Consult reason: atrial fibrillation (new onset), congestive heart failure History of present illness: History of present illness: This is an 83-year-old female patient with past medical history of leukemia not on chemotherapy, chronic lower extremity edema, hypertension. We have been asked to evaluate the patient for CHF and new onset of atrial fibrillation. Patient states that she does not follow with a lead programmer analyst and has never had a cardiac catheterization, stress test or open heart surgery. Patient states that her PCP found her blood work to be off and she was sent in for a blood transfusion. From there, she was sent into the emergency center due to abnormal lens grinder. Patient was found to be in atrial fibrillation which is new for her. Patient is seen today in the emergency center waiting for bed on the cardiac stepdown unit. EKG atrial fibrillation with ventricular rate of 82. WBC 289, hemoglobin 8, platelet count 42. INR 1.4. Electrolytes normal. BUN 41 creatinine 1.45 Home cardiac medications: Bumex 1 mg daily, Lasix 60 mg daily, losartan 50 mg daily, magnesium gluconate 250 mg bedtime. 06/13 Patient is seen today in follow-up but she remains in the emergency center waiting for bed. Yesterday, patient was started on Coreg for atrial fibrillation continued on IV Lasix 40 mg every 12 hours. Lower extremity edema is improved. 80 she states she is feeling okay today. She has a negative fluid balance of 2450. Weight is unchanged. No repeat blood work is available at the time of this dictation. BNP was 1430. Chest x-ray from yesterday reveals cardiomegaly with mild pulmonary vascular congestion. Echocardiogram reveals EF of 55 to 60%, RVSP 33. Mild to moderate mitral vegetation, mild tricuspid re gurgitation. No pericardial effusion. Physical examination: Gen: This is an 83-year-old female in no acute distress VS: reviewed blood pressure 133/59, heart rate 79, pulse ox 95% on 2 L nasal cannula HEENT: Head is atraumatic, normocephalic. Pupils equal, round. Sclerae is anicteric. NECK: Supple. No JVD. LUNGS: Diminished air entry. No intercostal retractions. HEART: Irregular rate and rhythm. 3/6 systolic murmur. ABDOMEN: Soft No tenderness. EXTREMITIES: Moderate bilateral lower extremity pitting edema. Chronic lower extremity skin changes. NEUROLOGICAL: Patient is awake, alert and oriented x3. Assessment: New onset atrial fibrillation, persistent Leukemia not on chemotherapy New onset of heart failure Chronic kidney disease stage III Plan: Continue patient's home cardiac medications Transition IV Lasix to 40 mg oral twice daily Monitor YESSICA, daily weights, electrolytes and renal function Continue patient on Coreg 3.25 mg twice daily Patient is not on anticoagulation secondary to leukemia Patient is cleared for discharge and may follow-up in the office in 1 to 2 weeks.. Nurse practitioner note has been reviewed, I agree with documented findings and plan of care. Patient was seen and examined. Objective - Vital Signs Vital signs: Vital Signs Temp 97.6 F 06/13/23 07:51 Pulse 79 06/13/23 07:51 Resp 18 06/13/23 07:51 BP 133/59 06/13/23 07:51 Pulse Ox 95 06/13/23 07:51 FiO2 Intake & Output 06/12/23 06/13/23 06/13/23 18:59 06:59 18:59 Intake Total 10 Output Total 500 1950 Balance -500 -1950 10 Weight 71.214 kg Intake: IV 10 Invasive Line 1 10 Output: Urine 500 1950 Other: Voiding Method Bedside Commode Bedside Commode # Bowel Movements 1 5 - Labs CBC & Chem 7: 06/12/23 08:25 06/12/23 08:36 Labs: Abnormal Lab Results - Last 24 Hours (Table) 06/12/23 06/12/23 06/13/23 Range/Units 08:25 08:36 00:44 WBC 278.3 H* (3.8-10.6) k/uL RBC 2.36 L (3.80-5.40) m/uL Hgb 8.5 L (11.4-16.0) gm/dL Hct 26.2 L (34.0-46.0) % MCV 111.0 H (80.0-100.0) fL MCH 35.9 H (25.0-35.0) pg RDW 18.4 H (11.5-15.5) % Plt Count 42 L (150-450) k/uL Neutrophils # (Manual) 8.35 H (1.3-7.7) k/uL Lymphocytes # (Manual) 267.17 H (1.0-4.8) k/uL Monocytes # (Manual) 2.78 H (0-1.0) k/uL Eosinophils # (Manual) 2.78 H (0-0.7) k/uL Myelocytes # (Manual) 2.78 H (0) k/uL Nucleated RBCs 1 H (0-0) /100 WBC Macrocytosis Marked A BUN 40 H (7-17) mg/dL Creatinine 1.46 H (0.52-1.04) mg/dL Uric Acid 13.2 H (3.7-7.4) mg/dL Calcium 11.7 H (8.4-10.2) mg/dL
[2023-06-13 10:57] VITALS: PULSE 72
[2023-06-13 10:59] LABS: African American GFR (CKD) 33 (>60 ml/min/1.73 sqM); Anion Gap 2 mmol/L; Blood Urea Nitrogen 44 mg/dL (7-17); Calcium 11.8 mg/dL (8.4-10.2); Carbon Dioxide 33 mmol/L (22-30); Chloride 103 mmol/L (98-107); Glucose 146 mg/dL (74-99); Non-African American GFR(CKD) 29 (>60 ml/min/1.73 sqM); Potassium 4.2 mmol/L (3.5-5.1); Sodium 138 mmol/L (137-145)
--- NOTE | 2023-06-13 13:29 | P.EN ---
hypoxia secondary to CHF. needs home oxygen 2/l
--- NOTE | 2023-06-13 15:00 | CDI ---
Documentation Clarification Form Date: 06/13/2023 02:50:05 PM From: Itzel Simon RN CCDS Phone: [phone] Admit Date: 06/11/2023 08:21:00 PM Patient Name: Shirley Nicolas Visit Number: [id number] Discharge Date: ATTENTION: The Clinical Documentation Specialists (CDI) and [facility] Coding Staff appreciate your assistance in clarifying documentation. Please respond to the clarification below the line at the bottom and electronically sign. The CDI & [facility] Coding staff will review the response and follow-up if needed. Please note: Queries are made part of the Legal Health Record. If you have any questions, please contact the author of this message via ITS. Dr. Rudi Santoyo Your patient has the documented diagnosis of unspecified CHF 06/13, Cardiology note. Additional information regarding the type of CHF is requested. History/Risk Factors: 83-year-old female presents to the ED from [facility] went into irregular heart beat while getting a blood transfusion. Medical history: HTN, OA, Varicose veins, urinary stress continence and Hairy cell leukemia. 06/12, H&P. Clinical Indicators: Vital signs: 06/11 B/P 152/81, HR 82, Temp 98.2F Oral, RR 18, SpO2 93% 3L nasal cannula BNP 06/12: 1430 Echocardiogram Results, 06/12: Left ventricular ejection fraction 55-60% RVSP 33 Mild to moderate mitral regurgitation Mild tricuspid regurgitation No pericardial effusion Chest X Ray 06/12: Cardiomegaly and mild pulmonary vascular congestion. Treatment: 06/12 Coreg 3.125mg PO BID, 06/12 06/13 Lasix 40mg IV Q12HR; 06/13 Lasix 40mg po BID In your professional opinion, can you please clarify the type of CHF if known? [ x ] Acute Diastolic Heart Failure (preserved EF) [ ] Other, please specify [ ] Unable to determine (Template Last Revised: May 2020) MTDD
--- NOTE | 2023-06-13 15:01 | CDI ---
Documentation Clarification Form Date: 06/13/2023 02:33:55 PM From: Itzel Simon RN CCDS Phone: [phone] Admit Date: 06/11/2023 08:21:00 PM Patient Name: Shirley Nicolas Visit Number: [id number] Discharge Date: ATTENTION: The Clinical Documentation Specialists (CDI) and [facility] Coding Staff appreciate your assistance in clarifying documentation. Please respond to the clarification below the line at the bottom and electronically sign. The CDI & [facility] Coding staff will review the response and follow-up if needed. Please note: Queries are made part of the Legal Health Record. If you have any questions, please contact the author of this message via ITS. Dr. Gilbert Penny Hypoxia secondary to CHF, needs home oxygen is documented 06/13, Medicine procedure note. Based on this information and the findings below, is there an additional diagnosis that is clinically appropriate for this patient? History/Risk Factors: 83-year-old female presents to the ED from [facility] went into irregular heart beat while getting a blood transfusion. Medical history: HTN, OA, Varicose veins, urinary stress continence and Hairy cell leukemia. 06/12, H&P. Clinical Indicators: Vital signs: 06/11 B/P 152/81, HR 82, Temp 98.2F Oral, RR 18, SpO2 93% 3L nasal cannula Pulse oximetry: 06/12 Trialed off oxygen 85% Lung/Breathing assessment: 06/12 Respiratory rate normal; clear to auscultation Treatment: Oxygen 2L nasal cannula Is there an additional diagnosis that is clinically appropriate for this patient? [ + ] Acute Hypoxic Respiratory Failure [ ] Other Diagnosis, please specify [ ] Unable to determine (Template Last Revised: April 2023) MTDD
[2023-06-13 15:07] VITALS: BP 134/77; TEMP 98
--- NOTE | 2023-06-13 18:03 | P.DS ---
Providers Date of admission: 06/11/23 20:21 Expected date of discharge: 06/13/23 Attending physician: Gilbert Penny Consults: 06/11/23 20:17 Consult Physician Urgent Consulting Provider: [facility] Consult Reason/Comments: new onset afib, chf Do you want consulting provider notified?: Yes Consult Physician Urgent Consulting Provider: David Wiseman Consult Reason/Comments: hairy cell leukemia Do you want consulting provider notified?: Yes Primary care physician: [facility] Course: Chief Complaint: Palpitation This is a pleasant 83-year-old patient, with chronic stable medical conditions include possible CHF, hypertension, hyperlipidemia, osteoarthritis varicose veins urinary stress incontinence. Patient was at [facility] and was ordered 2 units of blood. Was offered through first unit when she developed palpitation. Went into atrial fibrillation with rapid ventricular rate. No prior history of A-fib. Patient has a white count greater than 200. Has lower extremity edema. Some tiredness. Patient rather clear and does not want any further workup for her supposedly leukemia. June 13: Patient had CHF for which she received IV Lasix. Edema better. Made good urine output. 2D echo showed EF of 55 to 60%. Patient does not want any further workup for leukemia. Daughter present at the bedside. Cleared by cardiology. No anticoagulation because of leukemia. CHF causing hypoxia. Patient be discharged home on home oxygen Social history: Lives alone. Does use a walker. Patient smoked for 39 years less than a pack a day stopped in 1992. Alcohol occasionally. Physical examination: VITAL SIGNS: 98, 60, 18, 134/77, 83% with activity. 96% on 2 L GENERAL: Up in a chair, eating EYES: Pupils equal. Conjunctiva tiana l. HEENT: External appearance of nose and ears normal, oral cavity grossly normal. NECK: JVD not raised; masses not palpable. HEART: Heart sounds are regular, some edema. LUNGS: Respiratory rate normal; clear to auscultation. ABDOMEN: Soft, nontender, liver spleen not palpable, no masses palpable. PSYCH: Alert and oriented x3; mood and affect tiana l. MUSCULOSKELETAL:No Clubbing/cyanosis;muscles-grossly intact. OA INVESTIGATIONS, reviewed in the clinical context: 2D echocardiogram EF 55 to 60%. Mild TR. Mild to moderate MR. June 13: Potassium 4.2 BUN 44 creatinine 1.62 June 12: White count 278 hemoglobin 8.5 platelets 42 lymphocytes increased to 67 some increase in neutrophils and monocytes eosinophil myelocytes Sodium 142 potassium 4.2 BUN 40 creatinine 1.46 Troponin I less than 0.012 x 2 proBNP 1430 EKG tracing personally reviewed by me-atrial fibrillation. Rate 82 Chest x-ray film personally reviewed by me-cardiomegaly. Some pulmonary artery prominence. Venous prominence. Assessment plan: -Acute congestive heart failure exacerbation from diastolic dysfunction EF 55 to 60%. Possibly precipitated also by rapid atrial fibrillation. IV Lasix 40 mg every 12. 2D echo. Telemetry. Cardiology following. Bumex 1 mg twice daily. Fluid restriction -New onset of atrial fibrillation. Rate controlled Coreg 3.125 mg twice daily -Acute on chronic hypoxic respiratory failure secondary to CHF Discharged on home oxygen 2 L -Essential hypertension Coreg 3.125 twice daily. Cozaar 50 mg a day. 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 Patient does not want any treatment done. Consultation to hematology was done. Patient and daughter very clear did not want any further treatment. -Primary osteoarthritis Tylenol as needed -Chronic lower extremity varicose veins -Urinary stress incontinence -DNR Disposition: Home Past Medical History Past Medical History: Heart Failure, Hyperlipidemia, Hypertension, Osteoarthritis (OA) Additional Past Medical History / Comment(s): tx UTI,varicose veins,steroid injection 12-10-16,stress incontinence History of Any Multi-Drug Resistant Organisms: None Reported Past Surgical History: Appendectomy, Cholecystectomy, Hysterectomy, Joint Replacement Additional Past Surgical History / Comment(s): Total R knee arthroplasty,partial hyst Past Anesthesia/Blood Transfusion Reactions: Postoperative Nausea & Vomiting (PONV) Additional Past Anesthesia/Blood Transfusion Reaction / Comment(s): no hx blood transfusion Past Psychological History: No Psychological Hx Reported Past Alcohol Use History: Occasional Past Drug Use History: None Reported Plan - Discharge Summary Discharge Rx Participant: No New Discharge Prescriptions: New Artificial Tears-Hypromellose [Artificial Tear Drops] 1 drops BOTH EYES QID PRN ml PRN Reason: Dry Eye(S) Aspirin 325 mg PO DAILY tab carvediloL [Coreg] 3.125 mg PO BID-W/MEALS #60 tab Continue Magnesium Gluconate [Magonate] 250 mg PO HS Losartan Potassium 50 mg PO DAILY Multivitamin/Iron/Folic Acid [Centrum Women Tablet] 1 tab PO DAILY Meclizine [Antivert] 25 mg PO BID PRN PRN Reason: Vertigo ALPRAZolam [Xanax] 0.25 mg PO BID PRN PRN Reason: Anxiety Changed Bumetanide [BUMEX] 1 mg PO BID #60 tab Discontinued Furosemide [Lasix] 60 mg PO DAILY Discharge Medication List Magnesium Gluconate [Magonate] 250 mg PO HS 12/08/14 [History] Losartan Potassium 50 mg PO DAILY 01/08/17 [History] Multivitamin/Iron/Folic Acid [Centrum Women Tablet] 1 tab PO DAILY 01/08/17 [History] ALPRAZolam [Xanax] 0.25 mg PO BID PRN 06/11/23 [History] Meclizine [Antivert] 25 mg PO BID PRN 06/11/23 [History] Artificial Tears-Hypromellose [Artificial Tear Drops] 1 drops BOTH EYES QID PRN ml 06/13/23 [Rx] Aspirin 325 mg PO DAILY tab 06/13/23 [Rx] Bumetanide [BUMEX] 1 mg PO BID #60 tab 06/13/23 [Rx] carvediloL [Coreg] 3.125 mg PO BID-W/MEALS #60 tab 06/13/23 [Rx] Follow up Appointment(s)/Referral(s): [facility] [NON-STAFF] - As Needed (Supplier of home oxygen) Patrick Massey MD [Primary Care Provider] - 1-2 days (Please call to make a post hosptial follow up appointment) Rudi Santoyo MD [STAFF PHYSICIAN] - 2 Weeks (Please call to make a post hosptial follow up appointment ) Patient Instructions/Handouts: Heart Failure (DC) Activity/Diet/Wound Care/Special Instructions: fluid restrict 1800 cc/day
--- NOTE | 2023-06-14 11:01 | P.PN ---
Subjective Progress Note Date: 06/13/23 Pt sitting in chair eating at todays visit. No acute events. Reporting improvement in symptoms, plan for discharge today Objective - Vital Signs Vital signs: Vital Signs Temp 98.0 F 06/13/23 15:02 Pulse 72 06/13/23 10:47 Resp 18 06/13/23 15:02 BP 134/77 06/13/23 15:02 Pulse Ox 96 06/13/23 15:02 FiO2 Intake & Output 06/12/23 06/13/23 06/13/23 18:59 06:59 18:59 Intake Total 472 Output Total 500 1950 800 Balance -500 -1950 -334 Weight 71.214 kg Intake: IV 10 Invasive Line 1 10 Oral 462 Output: Urine 500 1950 800 Other: Voiding Method Bedside Commode Bedside Commode # Voids 1 # Bowel Movements 1 5 - Constitutional General appearance: Present: no acute distress - EENT Eyes: Present: anicteric sclerae, EOMI ENT: Present: hearing grossly normal - Respiratory Details: breathing even and unlabored - Cardiovascular Details: skin warm and dry - Gastrointestinal General gastrointestinal: Present: soft. Absent: tenderness - Integumentary Integumentary: Absent: cyanotic - Musculoskeletal Musculoskeletal: Present: generalized weakness, strength equal bilaterally - Psychiatric Psychiatric: Present: A&O x's 3 - Labs CBC & Chem 7: 06/12/23 08:25 06/13/23 09:43 Labs: Abnormal Lab Results - Last 24 Hours (Table) 06/13/23 06/13/23 06/13/23 Range/Units 00:44 09:43 09:43 Carbon Dioxide 33 H (22-30) mmol/L BUN 44 H (7-17) mg/dL Creatinine 1.62 H (0.52-1.04) mg/dL Glucose 146 H (74-99) mg/dL Uric Acid 13.2 H (3.7-7.4) mg/dL Calcium 11.8 H 11.8 H (8.4-10.2) mg/dL Assessment and Plan (1) Anemia Status: Acute Priority: High Code(s): D64.9 - ANEMIA, UNSPECIFIED SNOMED Code(s): 686282652 (2) CHF (congestive heart failure) Status: Acute Priority: High Code(s): I50.9 - HEART FAILURE, UNSPECIFIED SNOMED Code(s): 62056440 (3) Hairy cell leukemia Status: Chronic Priority: High Code(s): C91.40 - HAIRY CELL LEUKEMIA NOT HAVING ACHIEVED REMISSION SNOMED Code(s): 234813768 Plan: Hairy cell leukemia -Patient was seen and treated by Dr. Wiseman in 2019, she does not remember this -Patient has not been seen since that time, last note in the medical record states that she did not want to follow-up -Patient has been being followed by her PCP Dr. Massey. Obtained last office visit note, patient seen earlier this week. -Patient was sent for blood transfusion for hemoglobin in the low 7 range. She went into atrial fibrillation and was sent here for cardiology evaluation. -Patient's WBC 289, low hemoglobin, platelets of 42,000, massive splenomegaly a ll consistent with recurrent disease. Patient is very firm and the fact that she does not want to have chemotherapy. There are other non-chemotherapy treatment options available, including orals, which was previously discussed with Dr. Wiseman, but did not subsequently f/u. They could certainly help with symptoms, splenomegaly, make her less transfusion dependent -We further discussed different treatment options and possible associated side effects at todays visit. Patient was amendable to oral treatments. We will obtain prior auth, and schedule clinic f/u with patient and family to further discuss. -Zometa ordered for hypercalcemia. Calcium level 11.8, can take a cpl days for effects of zometa. Pt also given lasix. Will schedule lab encounter in clinic early next week to recheck labs. Will try to reach daughter to further discuss POC Doctor attests: I performed a history and physical examination of this patient, developed impression and plan of care. Discussed with dictator. I agree with dictators note, documented as a scribe.
== END 2023-06-13 16:24 | disposition home or self-care (01) | DRG 308 ==
LOC: EC 17:27 → 3SCARD 20:21
PROVIDERS: ADMIT Hospitalist; ATTEND Hospitalist
DX: I48.19 Other persistent atrial fibrillation (principal); I50.31 Acute diastolic (congestive) heart failure; J96.21 Acute and chronic respiratory failure with hypoxia; I13.0 Hypertensive heart and chronic kidney disease with heart failure and stage 1 through stage 4 chronic kidney disease, or unspecified chronic kidney disease; C91.40 Hairy cell leukemia not having achieved remission; Z99.81 Dependence on supplemental oxygen; N18.30 Chronic kidney disease, stage 3 unspecified; D63.0 Anemia in neoplastic disease; I08.1 Rheumatic disorders of both mitral and tricuspid valves; M19.91 Primary osteoarthritis, unspecified site; I83.90 Asymptomatic varicose veins of unspecified lower extremity; Z66 Do not resuscitate; N39.3 Stress incontinence (female) (male); R26.89 Other abnormalities of gait and mobility; E78.5 Hyperlipidemia, unspecified; R16.1 Splenomegaly, not elsewhere classified; E83.52 Hypercalcemia; M19.90 Unspecified osteoarthritis, unspecified site; Z96.651 Presence of right artificial knee joint; Z79.82 Long term (current) use of aspirin; Z79.01 Long term (current) use of anticoagulants; Z79.899 Other long term (current) drug therapy; Z87.891 Personal history of nicotine dependence
CPT/HCPCS: 36415; 71046; 80048; 80053; 82310; 83880; 84100; 84484; 84550; 85025; 85610; 85730; 93005; 93306; 96365; 96366; 96375; 96376; 99285

== ENCOUNTER 2024-04-12 13:08 | Emergency (ER) | payer MEDICARE, BC ==
[2024-04-12 13:15] VITALS: RESP 18; TEMP 97.5
--- NOTE | 2024-04-12 13:31 | ED ---
General Adult HPI - General Chief complaint: Fall Stated complaint: Fall-Head Injury Time Seen by Provider: 04/12/24 13:10 Source: EMS Mode of arrival: EMS Limitations: no limitations - History of Present Illness Initial comments: Dictation was produced using [employer] dictation software. please excuse any grammatical, word or spelling errors. Chief Complaint: 84-year-old female with fall History of Present Illness: Patient is 84-year-old female presents after fall arrives via EMS. Patient tripped and fell on her driveway landed face first. Denies any loss of consciousness. Patient not strong enough to get up. She pressed her life alert bracelet and EMS showed up 20 minutes later. Patient denies any extremity pain. No chest pain shortness of breath or abdominal pain. Patient otherwise at the bedside feels fine. Patient does not take ant icoagulation medications despite being diagnosed with A-fib The ROS documented in this emergency department record has been reviewed and confirmed by me. Those systems with pertinent positive or negative responses have been documented in the HPI. All other systems are other negative and/or noncontributory. - Related Data Home Medications Medication Instructions Recorded Confirmed Losartan Potassium 50 mg PO DAILY 01/08/17 04/12/24 Furosemide [Lasix] 20 mg PO TID 04/12/24 04/12/24 Previous Rx's Medication Instructions Recorded carvediloL [Coreg] 3.125 mg PO BID-W/MEALS #60 tab 06/13/23 Allergies Allergy/AdvReac Type Severity Reaction Status Date / Time No Known Allergies Allergy Verified 04/12/24 14:52 Review of Systems ROS Statement: Those systems with pertinent positive or pertinent negative responses have been documented in the HPI. ROS Other: All systems not noted in ROS Statement are negative. Past Medical History Past Medical History: Atrial Fibrillation, Cancer, Heart Failure, Hyperlipidemia, Hypertension, Osteoarthritis (OA) Additional Past Medical History / Comment(s): ,varicose veins,steroid injection 12-10-16,stress incontinence, leukemia dx 2019 History of Any Multi-Drug Resistant Organisms: None Reported Past Surgical History: Appendectomy, Cholecystectomy, Hysterectomy, Joint Replacement Additional Past Surgical History / Comment(s): Total R knee arthroplasty and left,partial hyst Past Anesthesia/Blood Transfusion Reactions: Postoperative Nausea & Vomiting (PONV) Additional Past Anesthesia/Blood Transfusion Reaction / Comment(s): no hx blood transfusion Past Psychological History: Unable to Obtain Smoking Status: Former smoker Past Alcohol Use History: Unable to Obtain Past Drug Use History: Unable to Obtain - Past Family History Brother(s) Family Medical History: Cancer Additional Family Medical History / Comment(s): lung Father Family Medical History: Dementia Additional Family Medical History / Comment(s): at age 91 Mother Family Medical History: Dementia Additional Family Medical History / Comment(s): at age 91 General Exam - General Exam Comments Initial Comments: PHYSICAL EXAM: General Impression: Alert and oriented x3, not in acute distress HEENT: Abrasion to the face extra-ocular movements intact, small laceration 1 cm to the inferior chin, pupils equal and reactive to light bilaterally, mucous membranes moist. Cardiovascular: Heart regular rate and rhythm Chest: Able to complete full sentences, no retractions, no tachypnea Abdomen: abdomen soft, non-tender, non-distended, no organomegaly Musculoskeletal: Pulses present and equal in all extremities, no peripheral edema Motor: no focal deficits noted Neurological: CN II-XII grossly intact, no focal motor or sensory deficits noted Skin: Intact with no visualized rashes Psych: Normal affect and mood Limitations: no limitations Course Vital Signs 04/12/24 04/12/24 13:10 16:10 Temperature 97.5 F L Pulse Rate 66 63 Respiratory 18 18 Rate Blood Pressure 127/52 128/55 O2 Sat by Pulse 96 93 L Oximetry EKG Findings - EKG Comments: EKG Findings:: My EKG interpretation: Ventricular rate 59, A-fib, QRS 97, QTc 441. No NH prolongation, no QTC prolongation, no ST or T-wave changes noted. Overall, this EKG is unremarkable Medical Decision Making - Medical Decision Making Was pt. sent in by a medical professional or institution (, PA, WELL HEAD PUMPER, urgent care, hospital, or [facility]...) When possible be specific @ -No Did you speak to anyone other than the patient for history (EMS, parent, family, police, friend...)? What history was obtained from this source @ -No Did you review nursing and triage notes (agree or disagree)? Why? @ -I reviewed and agree with nursing and triage notes Were old charts reviewed (outside hosp., previous admission, EMS record, old EKG, old radiological studies, urgent care reports/EKG's, [facility] records)? Report findings @ -No old charts were reviewed Differential Diagnosis (chest pain, altered mental status, abdominal pain women, abdominal pain men, vaginal bleeding, musculoskeletal, weakness, fever, dyspnea, syncope, headache, dizziness, GI bleed, back pain, seizure, CVA, palpatations, mental health)? @ -Skull fracture, intracranial bleed, neck fracture EKG interpreted by me (3pts min.). @ -See above X-rays interpreted by me (1pt min.). @ -None done CT interpreted by me (1pt min.). @ -CT of the face shows no acute process. CT scan of the head and C-spine shows subdural hemorrhage in the left convexity U/S interpreted by me (1pt. min.). @ -None done What testing was considered but not performed or refused? (CT, X-rays, U/S, labs)? Why? @ -None What meds were considered but not given or refused? Why? @ -None Was smoking cessation discussed for >3mins.? @ -No Were there social determinants of health that impacted care today? How? (Homelessness, low income, unemployed, alcoholism, drug addiction, transportation, low edu. Level, literacy, decrease access to med. care, retirement, rehab)? @ -No Was there de-escalation of care discussed even if they declined (Discuss DNR or withdrawal of care, Hospice)? DNR status @ -No What co-morbidities impacted this encounter? (DM, HTN, Smoking, COPD, CAD, Cancer, CVA, ARF, Chemo, Hep., AIDS, mental health diagnosis, sleep apnea, morbid obesity)? @ -Hairy cell leukemia Was patient admitted / discharged? Hospital course, mention meds given and route, prescriptions, significant lab abnormalities, going to OR and other pertinent info. @ -84-year-old female presents to the emergency department after fall. She did strike her head. She has a findings of head trauma. Patient not on anticoagulation medication despite having history of A-fib. Vital signs stable. Patient no acute distress at the bedside. Laboratory evaluation obtained. Patient has leukocytosis of 270.2 which is better than her usual baseline. Metabolic panel is unremarkable. CT brain shows subdural hemorrhage which appears mostly chronic however unable to exclude acute component. We do not have neurosurgical coverage here at our facility. Patient will be transferred to [facility] for further care. Case discussed with Dr. Fletcher at [facility] was going to accept patient for ER to ER transfer. Did you discuss the management of the patient with other professionals (professionals i.e. , PA, WELL HEAD PUMPER, lab, RT, psych nurse, oncology social work, market garden worker, teacher, special officer automat, skilled nursing case manager)? Give summary @ -See above Was critical care preformed (if so, how long)? @ -No Undiagnosed new problem with uncertain prognosis? @ -No Drug Therapy requiring intensive monitoring for toxicity (Heparin, Nitro, Insulin, Cardizem)? @ -No Were any procedures done? @ -No Diagnosis/symptom? Acute, or Chronic, or Acute on Chronic? Uncomplicated (without systemic symptoms) or Complicated (systemic symptoms)? @ -Head injury, chin laceration, intracranial bleed Side effects of treatment? @ -No Exacerbation, Progression, or Severe Exacerbation? @ -No Poses a threat to life or bodily function? How? (Chest pain, USA, RI, pneumonia, PE, COPD, DKA, ARF, appy, cholecystitis, CVA, Diverticulitis, Homicidal, Suicidal, threat to staff... and all critical care pts) @ -yes - Lab Data Result diagrams: 04/12/24 13:49 04/12/24 13:49 Lab Results 04/12/24 04/12/24 Range/Units 13:49 13:49 WBC 270.2 H* (3.8-10.6) k/uL RBC 2.00 L (3.80-5.40) m/uL Hgb 7.1 L (11.4-16.0) gm/dL Hct 22.8 L (34.0-46.0) % MCV 113.8 H (80.0-100.0) fL MCH 35.5 H (25.0-35.0) pg MCHC 31.2 (31.0-37.0) g/dL RDW 17.5 H (11.5-15.5) % Plt Count 64 L (150-450) k/uL MPV 10.8 Neutrophils % (Manual) 2 % Band Neuts % (Manual) 1 % Lymphocytes % (Manual) 95 % Monocytes % (Manual) 2 % Eosinophils % (Manual) 1 % Neutrophils # (Manual) 8.10 H (1.3-7.7) k/uL Lymphocytes # (Manual) 256.69 H (1.0-4.8) k/uL Monocytes # (Manual) 5.40 H (0-1.0) k/uL Eosinophils # (Manual) 2.70 H (0-0.7) k/uL Nucleated RBCs 0 (0-0) /100 WBC Manual Slide Review Performed Hypochromasia Marked Anisocytosis Slight Macrocytosis Marked A Sodium 139 (137-145) mmol/L Potassium 4.8 (3.5-5.1) mmol/L Chloride 106 (98-107) mmol/L Carbon Dioxide 24 (22-30) mmol/L Anion Gap 9 mmol/L BUN 64 H (7-17) mg/dL Creatinine 1.82 H (0.52-1.04) mg/dL Est GFR (CKD-EPI)AfAm 29 (>60 ml/min/1.73 sqM) Est GFR (CKD-EPI)NonAf 25 (>60 ml/min/1.73 sqM) Glucose 95 (74-99) mg/dL Calcium 8.9 (8.4-10.2) mg/dL Disposition Clinical Impression: Brain bleed Disposition: OTHER INSTITUTION NOT DEFINED Condition: Critical Referrals: Patrick Massey MD [Primary Care Provider] - 1-2 days Time of Disposition: 16:17 - Out of Hospital Transfer - Req. Specs Out of Hospital Transfer - Requested Specifics: Other Emergency Center ([facility])
[2024-04-12 14:09] LABS: African American GFR (CKD) 29 (>60 ml/min/1.73 sqM); Anion Gap 9 mmol/L; Blood Urea Nitrogen 64 mg/dL (7-17); Calcium 8.9 mg/dL (8.4-10.2); Carbon Dioxide 24 mmol/L (22-30); Chloride 106 mmol/L (98-107); Glucose 95 mg/dL (74-99); Non-African American GFR(CKD) 25 (>60 ml/min/1.73 sqM); Potassium 4.8 mmol/L (3.5-5.1); Sodium 139 mmol/L (137-145)
[2024-04-12 14:10] LABS: Anisocytosis Slight; HCT 22.8 % (34.0-46.0); HGB 7.1 gm/dL (11.4-16.0); Hypochromasia Marked; MCH 35.5 pg (25.0-35.0); MCHC 31.2 g/dL (31.0-37.0); MCV 113.8 fL (80.0-100.0); Macrocytosis Marked; Mean Platelet Volume 10.8; RDW 17.5 % (11.5-15.5)
[2024-04-12 14:12] LABS: Platelet Count 64 k/uL (150-450)
[2024-04-12 14:20] LABS: WBC 270.2 k/uL (3.8-10.6)
[2024-04-12 14:33] LABS: Band Neutrophils % 1 %; Lymphocytes # (M) 256.69 k/uL (1.0-4.8); Neutrophils % (M) 2 %; Nucleated Red Blood Cells 0 /100 WBC (0-0); Total Cells Counted 200
--- NOTE | 2024-04-12 15:50 | CT ---
EXAMINATION TYPE: CT brain masood elam DATE OF EXAM: 04/12/2024 COMPARISON: None CLINICAL INDICATION: Female, 84 years old with history of fall, facial contusion; PHH, fall TECHNIQUE: CT scan of the head and cervical spine are performed without contrast. CT DLP: 940.[address] CTDI: mGy Automated exposure control for dose reduction was used. Findings: Head CT: The ventricles, basal cisterns and sulci have a convex is a moderately to markedly enlarged consisten t with moderate to marked atrophy. There is marked decreased density in the periventricular white matter consistent with marked chronic ischemic white matter demyelination. There is no mass effect or shift in midline structures. There are small extra-axial fluid collections along the left inner convexity in the left frontal and parietal region. There is mixed density and consistent with small chronic subdural hemorrhages with p ossible acute component particularly in the left parietal region. The width of the subdural in the pa rietal region is 11 mm. Posterior fossa including the brainstem, fourth ventricle and cerebellar pontine angles are grossly n ormal. The intraorbital contents appear normal and symmetric. Visualized paranasal sinuses are well aerated. CT cervical spine: Craniovertebral junction relationships and prevertebral soft tissues are normal. The cervical vertebral segments are normal in height and alignment and there is no fracture subluxati on. There is mild disc space narrowing and spondylosis at C5-6 and C6-7 levels. There is mild degeneratio n of the uncovertebral joints throughout the cervical spine.. There is moderate to marked degeneratio n of the facet joints in the right mid cervical spine. . The bony cervical canal is widely patent and there is no bony encroachment of the neural foramina. The paraspinal soft tissues unremarkable. IMPRESSION: 1. Left sided subdural hematoma along the left inner convexity of the skull mostly chronic in nature although a small acute component of the hemorrhage cannot be excluded. There is no significant mass e ffect or shift in midline structures. 2. Moderate to marked generalized atrophy and moderate chronic ischemic white matter change. 3. Degenerative changes in the cervical spine as described above. No acute trauma to the cervical spi ne. [facility], , 04/12/2024 3:48 PM
--- NOTE | 2024-04-12 15:52 | CT ---
EXAMINATION TYPE: CT facial bones wo con DATE OF EXAM: 04/12/2024 COMPARISON: None CLINICAL INDICATION: Female, 84 years old with history of fall; PHH, fall TECHNIQUE: CT scan of the sinuses is performed without contrast, axial images are obtained, coronal reformatted images are also reviewed. CT DLP: 940.[address] CTDI: mGy Automated exposure control for dose reduction was used. FINDINGS: There is no fracture or focal intraosseous abnormality of the facial bones. The paranasal sinuses including the frontal, ethmoid, sphenoid, and maxillary sinuses bilaterally ar e well-aerated without abnormal opacification. The ostiomeatal complex is patent bilaterally on the coronal images. Visualized portion of mastoid air cells show no abnormal opacification. The globes are intact bilate rally. IMPRESSION: No acute trauma to the facial bones. [facility], , 04/12/2024 3:49 PM
[2024-04-12] MEDS ORDERED: DIPH,PERTUS(ACELL)TETVAC-LF 0.5 ML VIAL IM ONE (15:58)
[2024-04-12 16:12] VITALS: BP 128/55; PULSE 63
== END 2024-04-12 16:53 | disposition other institution (70) ==
LOC: EC 13:08
DX: S01.81XA Laceration without foreign body of other part of head, initial encounter (principal); I62.9 Nontraumatic intracranial hemorrhage, unspecified; Z85.6 Personal history of leukemia; I48.91 Unspecified atrial fibrillation; Z87.891 Personal history of nicotine dependence; W01.0XXA Fall on same level from slipping, tripping and stumbling without subsequent striking against object, initial encounter; Y92.410 Unspecified street and highway as the place of occurrence of the external cause
CPT/HCPCS: 36415; 70450; 70486; 72125; 80048; 85025; 93005; 99285